=== PATIENT | female | born 1930 | race Caucasian/White ===

== ENCOUNTER 2017-10-25 15:12 | Outpatient (CLI) | payer MEDICARE, OTHER | END 2017-10-25 15:13 | disposition home or self-care (01) | LOC: SC 15:12 | PROVIDERS: ATTEND Nurse Practitioner Family | DX: G47.33 Obstructive sleep apnea (adult) (pediatric) (principal) | CPT/HCPCS: 99214; G0463; 99212 ==

== ENCOUNTER 2017-11-25 15:57 | Outpatient (CLI) | payer MEDICARE, OTHER ==
--- NOTE | 2017-11-25 16:40 | XRAY Report ---
EXAM: CHEST RADIOGRAPHY EXAM DATE: 11/25/2017 04:15 PM. CLINICAL HISTORY: Cough. History of interstitial lung disease. COMPARISON: None. TECHNIQUE: 2 views. FINDINGS: Lungs/Pleura: Mild scarring/atelectasis in the bases, otherwise clear lungs. No effusion or pneumotho rax. Mediastinum: Heart and mediastinal contours are unremarkable. Other: No compression fractures. IMPRESSION: Mild bibasilar atelectasis/scarring, otherwise unremarkable 2-view chest radiography. [facility] The call report notification system was initiated by Dr. Ian Pearce at 16:28 hrs on 11/25/17. The above findings were discussed with ANGELA Cuenca by Dr. Ian Pearce at 16:38 hrs on . Referring Provider Line: [phone] SITE ID: [id number]
== END 2017-11-25 15:58 | disposition home or self-care (01) ==
LOC: DI 15:57
PROVIDERS: ATTEND Physician Assistant
DX: R05 Cough (principal)
CPT/HCPCS: 71020

== ENCOUNTER 2018-09-10 21:40 | Outpatient (CLI) | payer MEDICARE, OTHER | END 2018-09-10 21:41 | disposition critical access hospital (66) | LOC: EMS 21:40 | PROVIDERS: ATTEND Surgery | DX: R19.7 Diarrhea, unspecified (principal); R11.2 Nausea with vomiting, unspecified | CPT/HCPCS: A0425; A0427 ==

== ENCOUNTER 2018-09-10 21:55 | Inpatient (IN) | payer MEDICARE, OTHER ==
[2018-09-10 23:25] LABS: BASOPHILS # (AUTO) 0.1 10^3/uL (0.0-0.1); BASOPHILS % (AUTO) 0.8 %; EOSINOPHILS # (AUTO) 0.2 10^3/uL (0.0-0.7); HGB - HEMOGLOBIN 11.7 g/dL (12.0-16.0); LYMPHOCYTES # (AUTO) 1.8 10^3/uL (1.5-3.5); LYMPHOCYTES % (AUTO) 21.4 %; MEAN CORPUSCULAR HEMOGLOBIN 32.1 pg (27.0-31.0); MEAN CORPUSCULAR HGB CONC 35.4 g/dL (32.0-36.0); MEAN CORPUSCULAR VOLUME 90.8 fL (81.0-99.0); MEAN PLATELET VOLUME 6.9 fL (7.9-10.8); MONOCYTES # (AUTO) 0.6 10^3/uL (0.0-1.0); MONOCYTES % (AUTO) 7.4 %; NEUTROPHILS # (AUTO) 5.7 10^3/uL (1.5-6.6); NEUTROPHILS % (AUTO) 68.4 %; PLT - PLATELET COUNT 302 10^3/uL (130-450); RED BLOOD COUNT 3.63 10^6/uL (4.20-5.40); RED CELL DISTRIBUTION WIDTH 13.7 % (12.0-15.0); WHITE BLOOD COUNT 8.3 x10^3/uL (4.8-10.8)
--- NOTE | 2018-09-10 23:40 | ED Physician Documentation ---
PD HPI NVD - Stated complaint Stated Complaint: N/V/D - Chief complaint Chief Complaint: General - History obtained from History obtained from: Patient - History of Present Illness Timing - onset: How many months ago (1) Timing - duration: Other (diarrhea x 1 month, n/v x 2-3 days) Timing - details: Gradual onset, Intermittant Pain level max: 0 Pain level now: 0 Associated symptoms: No: Fever, Abdominal pain Improved by: Other (no ameliorating factors) Worsened by: Eating Similar symptoms before: Has not had sx before Recently seen: Not recently seen - Additonal information Additional information: c/o 1 month of episodic diarrhea of increasing frequency. nausea and vomiting x 2-3 days, also increasing in frequency and duration. BIBA, given zofran IV en route with improvement in nausea. Review of Systems Constitutional: reports: Reviewed and negative Cardiac: reports: Reviewed and negative Respiratory: reports: Reviewed and negative GI: reports: Nausea, Vomiting, Diarrhea. denies: Abdominal Pain, Constipation : denies: Dysuria, Frequency Skin: reports: Reviewed and negative Musculoskeletal: reports: Reviewed and negative Neurologic: reports: Generalized weakness. denies: Focal weakness, Numbness, Confused, Altered mental status, Headache PD PAST MEDICAL HISTORY - Past Medical History Past Medical History: Yes Cardiovascular: Hypertension Neuro: Tremors Psych: Depression, Anxiety - Past Surgical History Past Surgical History: Yes General: Cholecystectomy, Appendectomy Ortho: Knee replacement HEENT: Tonsil/Adenoidectomy - Allergies Allergies/Adverse Reactions: Allergies Allergy/AdvReac Type Severity Reaction Status Date / Time codeine Allergy Nausea Verified 09/10/18 21:59 procaine [From Novocain] Allergy Anaphylaxis Verified 09/10/18 21:59 Sulfa (Sulfonamide Allergy Nausea Verified 09/10/18 21:59 Antibiotics) - Social History Does the pt smoke?: Yes Smoking Status: Former smoker Does the pt drink ETOH?: No Does the pt have substance abuse?: No - Immunizations Immunizations are current?: Yes - POLST Patient has POLST: No PD ED PE NORMAL - Vitals Vital signs reviewed: Yes - General General: Alert and oriented X 3, No acute distress, Well developed/nourished - HEENT HEENT: PERRL, EOMI, Other (tacky/pasty mucous membranes) - Neck Neck: Supple, no meningeal sign - Cardiac Cardiac: RRR, No murmur - Respiratory Respiratory: No respiratory distress, Clear bilaterally - Abdomen Abdomen: Soft, Non tender - Back Back: No CVA TTP - Derm Derm: Normal color, Warm and dry - Extremities Extremities: No edema - Neuro Neuro: Alert and oriented X 3 Results - Vitals Vitals: Vital Signs - 24 hr 09/10/18 21:59 Temperature 36.7 C Heart Rate 60 Respiratory 16 Rate Blood Pressure 175/56 H O2 Saturation 99 Oxygen O2 Source Room air - Labs Labs: Laboratory Tests 09/10/18 23:20 WBC 8.3 RBC 3.63 L Hgb 11.7 L Hct 33.0 L MCV 90.8 MCH 32.1 H MCHC 35.4 RDW 13.7 Plt Count 302 MPV 6.9 L Neut # (Auto) 5.7 Lymph # (Auto) 1.8 [place] # (Auto) 0.6 Eos # (Auto) 0.2 Baso # (Auto) 0.1 Absolute Nucleated RBC 0.00 Nucleated RBC % 0.0 PD MEDICAL DECISION MAKING - ED course Complexity details: reviewed results, re-evaluated patient, considered differential, d/w patient ED course: Improved with zofran IV en route, but N/V recurred during H+P, requiring redose of zofran. Blood tests reveal significant hyponatremia Departure - Departure Disposition: 66 [facility] DC/Xfer Clinical Impression: Hyponatremia Diarrhea Qualifiers: Diarrhea type: unspecified type Qualified Code(s): R19.7 - Diarrhea, unspecified Vomiting Qualifiers: Vomiting type: unspecified Vomiting Intractability: intractable Nausea presence: with nausea Qualified Code(s): R11.2 - Nausea with vomiting, unspecified Condition: Stable Discharge Date/Time: 09/11/18 01:27
[2018-09-10 23:41] LABS: ALBUMIN 3.8 g/dL (3.2-5.5); ALBUMIN/GLOBULIN RATIO 1.3 (1.0-2.2); BILIRUBIN,TOTAL 0.8 mg/dL (0.2-1.0); CALCIUM 9.9 mg/dL (8.5-10.3); TOTAL PROTEIN 6.7 g/dL (6.7-8.2)
[2018-09-10] MEDS ORDERED: SODIUM CHLORIDE 0.9% 500 ML IV STA (23:56)
[2018-09-10] MEDS ORDERED: SODIUM CHLORIDE 0.9% 1,000 ML IV STA (23:57)
[2018-09-11] MEDS ORDERED: ONDANSETRON 4 MG/2 ML VIAL IVP STA (00:11)
[2018-09-11 00:14] LABS: BILIRUBIN,URINE NEGATIVE (NEGATIVE); CLARITY,URINE CLEAR (CLEAR); GLUCOSE, URINE (UA) NEGATIVE (NEGATIVE); KETONES,URINE (UA) TRACE mg/dL (NEGATIVE); LEUKOCYTE ESTERASE, URINE SMALL (NEGATIVE); NITRITE,URINE POSITIVE (NEGATIVE); OCCULT BLOOD,URINE NEGATIVE (NEGATIVE); PH,URINE 5.5 PH (5.0-7.5); PROTEIN,URINE NEGATIVE (NEGATIVE); UROBILINOGEN,URINE 0.2 (NORMAL) E.U./dL (NORMAL)
[2018-09-11] MEDS ORDERED: ACETAMINOPHEN 325 MG TABLET PO PRN (00:15)
[2018-09-11] MEDS ORDERED: ONDANSETRON 4 MG/2 ML VIAL IVP PRN (00:15)
[2018-09-11] MEDS ORDERED: oxyCODONE 5 MG TABLET PO PRN ×2 (00:15)
[2018-09-11] MEDS ORDERED: PROCHLORPERAZINE 10 MG/2 ML VIAL IVP PRN (00:15)
[2018-09-11] MEDS ORDERED: SODIUM CHLORIDE FLUSH 0.9% 10 ML SYRINGE IVP PRN (00:15)
[2018-09-11 00:18] LABS: BACTERIA,URINE Rare /HPF (None Seen); RBC,URINE None Seen /HPF (0-5); SQUAMOUS EPITHELIAL CELL,UR FEW Squamous (<= Few)
--- NOTE | 2018-09-11 00:31 | HISTORY & PHYSICAL EXAMINATION ---
Chief Complaint - Chief Complaint Chief Complaint: Nausea and vomiting History of Present Illness - Admitted From Admitted From:: Emergency Department - History Obtained From Records Reviewed: Yes History obtained from: Patient and patients family Exam Limitations: None - History of Present Illness HPI Comment/Other: Patient is a very pleasant 87-year-old female with a past medical history significant for hypertension, essential tremor, restless leg syndrome, paroxysmal atrial fibrillation and obstructive sleep apnea on CPAP who presented to the emergency department with a chief complaint of nausea and vomiting. Acco rding to the patient she was in her normal state of health until about 1 month ago. She states that over the last 7 months she has been under a lot of stress due to her being hospitalized 10 times over those 7 months. She states that he has been having to go to a assisted off and on and over the last month he has taken a very bad turn in his health. She states that because of this she has become very stressed and believes this is related to her ongoing symptoms. She states about a month ago she began having diarrhea. She states it has been watery and yellowish in color. She denies any blood in her stools. She denies any fevers or chills. She denies any sick contacts. She denies having taken any new antibiotics. She states that she has been followed by her primary care physician regarding her diarrhea and has had C. difficile testing in the last 2 weeks which was negative. The patient states that on days that she is more stressed she seems to have more frequent episodes of diarrhea. On days when she is less stressed she has less diarrhea. She states that her [facility] physician put her on 2 antidepressants about 3 weeks ago and she was only able to tolerate them for about 1 week because they caused nausea and then she stopped them. She states that she has been trying to see her less and less as he is currently at [facility]. She states that every time she goes to see him she feels very stressed and then her symptoms get worse. She states that yesterday he was in really bad health and she was extremely stressed out after she saw him in that shape. She states that last night when she returned from seeing her she felt sick to her stomach and had episode of diarrhea and then began vomiting. She states when she woke up this morning she continued to have an upset stomach and had several episodes of vomiting this morning. She states that things seem to be improving in the afternoon but then she received a phone call from the assisted and was told that her is getting worse and that the family needs to consider hospice for her . She states that after she got this news she became very upset and again became sick to her stomach. She states that she had several episodes of vomiting and was very nauseated therefore she finally was brought into the emergency department by her daughters. She states that yesterday she ate half a baked potato but did not eat anything unusual. She denies any fevers or chills. She denies any abdominal pain. She denies any chest pain or shortness of breath. She denies any cough. She denies any urinary urgency frequency or dysuria. The patient denies any headaches, blurred vision, runny nose, sore throat, nasal congestion, difficulty swallowing, orthopnea, PND, increased lower extremity swelling, joint pain, muscle aches, back pain, neck stiffness, recent unintentional weight loss, night sweats, skin rash, skin changes, hair loss, polyuria, polydipsia, changes in her appetite or any focal neurologic deficits. On presentation to the emergency department the patient was afebrile and hypertensive but otherwise did not appear to be in any distress. The patient did appear to be dry on examination. The patient underwent routine lab work which revealed a sodium of 119 and a potassium of 3.1 with a chloride of 85. The patient's urinalysis also was positive with positive nitrite, positive leukocyte Estrace and 11-25 WBCs with bacteria. The patient was given IV fluid in the emergency department and admitted for severe hyponatremia and urinary tract infection. History - Past Medical History Cardiovascular: reports: Hypertension, Atrial fibrillation (Paroxysmal) Respiratory: reports: Sleep apnea, CPAP use Neuro: reports: Tremors Psych: reports: Depression, Anxiety MRSA Hx?: No Other Past Medical History: Essential tremor. Restless leg syndrome - Past Surgical History General: reports: Cholecystectomy, Appendectomy Ortho: reports: Knee replacement HEENT: reports: Tonsil/Adenoidectomy - Family & Social History Family History: Mother: , Cancer (Colon cancer), COPD/Emphysema, Father: , Alcoholism, Other family: Cancer Living arrangement: At home Living Situation: Alone Social History Notes: The patient lives in a [facility] in [place]. Up until just the last few months she was living there with her . When her got sick she and her moved in with her daughter who lives nearby and another [facility]. However now the is been placed at a assisted and therefore the patient moved back to her [facility] and is living alone. She is under a great deal of stress as her is very ill and will likely need to be going hospice soon. She is depressed and having a difficult time handling everything. They have been for 60 years and she has never lived alone before this last month. She and her have split their [facility] through their lifetime. They have been living [place] now. The patient was previously a smoker but only smoked for about 7 years in the 1960s and smoked 2 packs a day during that time. She states that she rarely drinks alcohol and denies any other drug use. - POLST Patient has POLST: No POLST Status: DNR Meds/Allgy - Allergies Allergies/Adverse Reactions: Allergies Allergy/AdvReac Type Severity Reaction Status Date / Time codeine Allergy Nausea Verified 09/10/18 21:59 procaine [From Novocain] Allergy Anaphylaxis Verified 09/10/18 21:59 Sulfa (Sulfonamide Allergy Nausea Verified 09/10/18 21:59 Antibiotics) Review of Systems - Other Findings Other Findings: A comprehensive review of systems was performed the pertinent positives and negatives are stated above in the HPI and the remainder of the review of systems is negative. Prior Level of Functionality: She is completely independent with her activities of daily living. She ambulates without any assistance device. Exam - Vital Signs Reviewed Vital Signs: Yes Vital Signs: Vital Signs x48h Temp Pulse Resp BP Pulse Ox 09/10/18 23:50 63 16 148/55 H 98 09/10/18 21:59 36.7 C 60 16 175/56 H 99 - Physical Exam General Appearance: positive: No acute distress, Alert, Other (Depressed) Eyes Bilateral: positive: Normal inspection, PERRL, EOMI, No lid inflammation, Conjunctivae nml, No scleral icterus ENT: positive: ENT inspection nml, Pharynx nml, Dry mucous membranes. negative: Purulent nasal drainage, Pharyngeal erythema, Oral lesions Neck: positive: Nml inspection, Thyroid nml, No JVD, Trachea midline. negative: Thyromegaly, Lymphadenopathy (R), Lymphadenopathy (L), Stiff neck, Carotid bruit, Tracheal deviation Respiratory: positive: Chest non-tender, No respiratory distress, Breath sounds nml. negative: Wheezes, Rales, Rhonchi Cardiovascular: positive: Regular rate & rhythm, No murmur, No gallop Peripheral Pulses: positive: 2+ Abdomen: positive: No organomegaly, Nml bowel sounds, Tenderness (Mild epigastric tenderness without peritoneal signs, soft abdomen). negative: Guarding, Rebound, Hepatomegaly Back: positive: Nml inspection. negative: CVA tenderness (R), CVA tenderness (L) Skin: positive: Color nml, No rash, Warm, Dry. negative: Cyanosis, Diaphoresis, Pallor, Skin rash Extremities: positive: Non-tender, Full ROM, Nml appearance, No pedal edema Neurologic/Psychiatric: positive: Oriented x3, CN's nml (2-12), Motor nml, Sensation nml, Mood/affect nml Conclusion/Plan - Problem List (1) Hyponatremia Conclusion/Plan: The patient presented with nausea and vomiting. The patient is also been having 1 month of diarrhea. The patient appears to be very dry on examination. The patient appears to have hypovolemic hyponatremia with a sodium of 119. Given that the patient's sodium is critically low we will treat her slowly and monitor her sodium every 6 hours. Will try not to correct the sodium too fast and we will have a goal of no more than 10 mmol/L sodium correction per day. Plan: IV fluids Antiemetics and antidiarrheal medications to treat symptoms Monitor sodium every 6 hours Correct sodium at no more than 10 mmol/L/day (2) Hypokalemia Conclusion/Plan: The patient presents with hypokalemia with a potassium of 3.1. Patient's hypokalemia appears likely to be secondary to chronic diarrhea and ongoing nausea and vomiting. Plan: Replace patient's potassium with IV fluids IV antiemetics Treat diarrhea (3) UTI (urinary tract infection) Conclusion/Plan: The patient presented with nausea and vomiting and had finding of hyponatremia and hypokalemia. The patient denied any dysuria but did state that she had an upset stomach. Patient's urine analysis appears to be positive for a urinary tract infection. Given the patient's symptoms we will treat her for UTI. Plan: IV ceftriaxone IV fluids Follow-up urine culture Qualifiers: Urinary tract infection type: acute cystitis Hematuria presence: without hematuria Qualified Code(s): N30.00 - Acute cystitis without hematuria (4) Diarrhea Conclusion/Plan: The patient appears to be having episodic, chronic diarrhea over the last month. It appears to be related to stress. It seems that every time the patient becomes stressed about her 's deteriorating health she develops worsening diarrhea. This appears likely to be irritable bowel syndrome. The patient did have a C. difficile test done a few weeks ago which was negative. The patient's chronic diarrhea has led to electrolyte disturbances as the patient is hypo natremic and hypokalemic on presentation. Plan: Check stool for ova parasites, stool culture and fecal leukocytes Start patient on Bentyl for irritable bowel syndrome Treat patient's underlying anxiety, stress and depression Consider Lomotil or Imodium if the diarrhea continues. Qualifiers: Diarrhea type: unspecified type Qualified Code(s): R19.7 - Diarrhea, unspecified (5) Hypertension Conclusion/Plan: The patient has a history of hypertension and blood pressure was elevated on presentation. The patient does take a number of antihypertensive medications at home but she does not have her home medication list with her today. The patient will get her daughter to bring in her home medication list and we will restart her on her normal antihypertensive medications. The patient's blood pressure will be monitored and we will titrate medications as needed. Qualifiers: Hypertension type: essential hypertension Qualified Code(s): I10 - E ssential (primary) hypertension (6) Depression Conclusion/Plan: The patient has been suffering with depression since her has been ill. She states that she is having a difficult time dealing with stress and has been very depressed especially over the last month as she has been living alone for the first time and her is nearing the end of his life. She was tried on antidepressants a few weeks ago but did not tolerate them well. She states that she has been on Valium in the past that seemed to help with her stress and depression issues in the past. The patient will be placed on Xanax while she is hospitalized twice a day and we will monitor to see if her symptoms respond. We will get a social work consult Qualifiers: Depression Type: unspecified Qualified Code(s): F32.9 - Major depressive disorder, single episode, unspecified (7) JOSE DANIEL on CPAP Conclusion/Plan: The patient has a history of obstructive sleep apnea and uses CPAP at home. The patient will be continued on her home CPAP machine while she is hospitalized. - Lab Results Lab results reviewed: Yes Fish Bones: 09/10/18 23:20 09/10/18 23:20 Other Lab Results: Laboratory Results WBC 8.3 x10^3/uL (4.8-10.8) 09/10/18 23:20 RBC 3.63 10^6/uL (4.20-5.40) L 09/10/18 23:20 Hgb 11.7 g/dL (12.0-16.0) L 09/10/18 23:20 Hct 33.0 % (37.0-47.0) L 09/10/18 23:20 MCV 90.8 fL (81.0-99.0) 09/10/18 23:20 MCH 32.1 pg (27.0-31.0) H 09/10/18 23:20 MCHC 35.4 g/dL (32.0-36.0) 09/10/18 23:20 RDW 13.7 % (12.0-15.0) 09/10/18 23:20 Plt Count 302 10^3/uL (130-450) 09/10/18 23:20 MPV 6.9 fL (7.9-10.8) L 09/10/18 23:20 Neut # (Auto) 5.7 10^3/uL (1.5-6.6) 09/10/18 23:20 Lymph # (Auto) 1.8 10^3/uL (1.5-3.5) 09/10/18 23:20 [place] # (Auto) 0.6 10^3/uL (0.0-1.0) 09/10/18 23:20 Eos # (Auto) 0.2 10^3/uL (0.0-0.7) 09/10/18 23:20 Baso # (Auto) 0.1 10^3/uL (0.0-0.1) 09/10/18 23:20 Absolute Nucleated RBC 0.00 x10^3/uL 09/10/18 23:20 Nucleated RBC % 0.0 /100WBC 09/10/18 23:20 Sodium 119 mmol/L (135-145) L* 09/10/18 23:20 Potassium 3.1 mmol/L (3.5-5.0) L 09/10/18 23:20 Chloride 85 mmol/L (101-111) L 09/10/18 23:20 Carbon Dioxide 23 mmol/L (21-32) 09/10/18 23:20 Anion Gap 11.0 (6-13) 09/10/18 23:20 BUN 20 mg/dL (6-20) 09/10/18 23:20 Creatinine 1.0 mg/dL (0.4-1.0) 09/10/18 23:20 Estimated GFR (MDRD) 52 (>89) L 09/10/18 23:20 Glucose 110 mg/dL (70-100) H 09/10/18 23:20 Calcium 9.9 mg/dL (8.5-10.3) 09/10/18 23:20 Total Bilirubin 0.8 mg/dL (0.2-1.0) 09/10/18 23:20 AST 15 IU/L (10-42) 09/10/18 23:20 ALT 15 IU/L (10-60) 09/10/18 23:20 Alkaline Phosphatase 44 IU/L (42-121) 09/10/18 23:20 Total Protein 6.7 g/dL (6.7-8.2) 09/10/18 23:20 Albumin 3.8 g/dL (3.2-5.5) 09/10/18 23:20 Globulin 2.9 g/dL (2.1-4.2) 09/10/18 23:20 Albumin/Globulin Ratio 1.3 (1.0-2.2) 09/10/18 23:20 Lipase 61 U/L (22-51) H 09/10/18 23:20 Urine Color YELLOW 09/11/18 00:10 Urine Clarity CLEAR (CLEAR) 09/11/18 00:10 Urine pH 5.5 PH (5.0-7.5) 09/11/18 00:10 Ur Specific [place] 1.010 (1.002-1.030) 09/11/18 00:10 Urine Protein NEGATIVE mg/dL (NEGATIVE) 09/11/18 00:10 Urine Glucose (UA) NEGATIVE mg/dL (NEGATIVE) 09/11/18 00:10 Urine Ketones TRACE mg/dL (NEGATIVE) 09/11/18 00:10 Urine Occult Blood NEGATIVE (NEGATIVE) 09/11/18 00:10 Urine Nitrite POSITIVE (NEGATIVE) H 09/11/18 00:10 Urine Bilirubin NEGATIVE (NEGATIVE) 09/11/18 00:10 Urine Urobilinogen 0.2 (NORMAL) E.U./dL (NORMAL) 09/11/18 00:10 Ur Leukocyte Esterase SMALL (NEGATIVE) H 09/11/18 00:10 Urine RBC None Seen /HPF (0-5) 09/11/18 00:10 Urine WBC 11-25 /HPF (0-5) H 09/11/18 00:10 Ur Squamous Epith Cells FEW Squamous (<= Few) 09/11/18 00:10 Urine Bacteria Rare /HPF (None Seen) 09/11/18 00:10 Ur Microscopic Review INDICATED 09/11/18 00:10 Urine Culture Comments INDICATED 09/11/18 00:10 Core Measures - Anticipated LOS I expect patient to be DC'd or transferred within 96 hours.: Yes - DVT/VTE - Prophylaxis VTE/DVT Prophylaxis med ordered at admit?: Yes
[2018-09-11] MEDS: NS W/20 MEQ KCL 1,000 ML IV SCH ×2 (01:50→13:25)
[2018-09-11] MEDS: cefTRIAXone 1 GM in SODIUM CHLORIDE 0.9% MINIBAG 100 ML IV SCH (01:55)
[2018-09-11] MEDS: SODIUM CHLORIDE FLUSH 0.9% 10 ML SYRINGE IVP SCH ×3 (02:01→17:10)
[2018-09-11] MEDS: ALPRAZolam 0.25 MG TABLET PO SCH ×3 (02:37→20:19)
--- NOTE | 2018-09-11 03:20 | Ultrasound Report ---
Reason: Nausea and abdominal tenderness, elevated lipase Procedure Date: 09/11/2018 Accession Number: [id number] / [id number] Procedure: US - Abdomen Complete CPT Code: FULL RESULT: EXAM: ABDOMEN ULTRASOUND EXAM DATE: 09/11/2018 02:27 AM. CLINICAL HISTORY: Nausea and abdominal tenderness, elevated lipase. COMPARISON: None. TECHNIQUE: Real-time scanning was performed with static images obtained. FINDINGS: Liver: The liver parenchyma is heterogeneous. cm. Main portal vein flow: Hepatopetal. Gallbladder: Resected Biliary System: Common bile duct measures 4 mm. No intrahepatic or extrahepatic ductal dilatation. Pancreas: Obscured secondary to bowel gas. Kidneys: Right: 8.5 cm longitudinally. Normal. No contour-deforming mass, stones, or hydronephrosis. Left: 9.11 cm longitudinally. Normal. No contour-deforming mass, stones, or hydronephrosis. Spleen: 8.1 x 2.5 x 8.0 cm. Normal in size and echotexture. Aorta and Inferior Vena Cava: Unremarkable. Other: None. IMPRESSION: 1. No findings to explain clinical symptoms. [facility]
[2018-09-11 06:56] LABS: CREATININE 0.9 mg/dL (0.4-1.0); MAGNESIUM 1.3 mg/dL (1.7-2.8); PHOSPHORUS 3.2 mg/dL (2.5-4.6)
[2018-09-11 07:08] LABS: BASOPHILS # (AUTO) 0.1 10^3/uL (0.0-0.1); BASOPHILS % (AUTO) 0.7 %; EOSINOPHILS # (AUTO) 0.2 10^3/uL (0.0-0.7); EOSINOPHILS % (AUTO) 2.3 %; LYMPHOCYTES # (AUTO) 2.3 10^3/uL (1.5-3.5); LYMPHOCYTES % (AUTO) 27.9 %; MEAN CORPUSCULAR HEMOGLOBIN 31.7 pg (27.0-31.0); MEAN CORPUSCULAR HGB CONC 34.7 g/dL (32.0-36.0); MEAN CORPUSCULAR VOLUME 91.2 fL (81.0-99.0); MEAN PLATELET VOLUME 7.6 fL (7.9-10.8); MONOCYTES # (AUTO) 0.8 10^3/uL (0.0-1.0); NEUTROPHILS # (AUTO) 4.9 10^3/uL (1.5-6.6); NEUTROPHILS % (AUTO) 59.1 %; PLT - PLATELET COUNT 273 10^3/uL (130-450); RED BLOOD COUNT 3.48 10^6/uL (4.20-5.40); RED CELL DISTRIBUTION WIDTH 13.6 % (12.0-15.0); WHITE BLOOD COUNT 8.3 x10^3/uL (4.8-10.8)
[2018-09-11] MEDS ORDERED: POTASSIUM CHLORIDE 20 MEQ TABLET PO SCH (08:10)
[2018-09-11] MEDS ORDERED: cloNIDine 0.1 MG TABLET PO PRN (08:15)
[2018-09-11] MEDS ORDERED: ENOXAPARIN 40 MG/0.4 ML SYRINGE SUBQ SCH (09:00)
[2018-09-11] MEDS ORDERED: FAMOTIDINE 20 MG TABLET PO SCH (09:00)
[2018-09-11] MEDS: POLYETHYLENE GLYCOL 3350 17 GM PACKET PO SCH (09:03)
[2018-09-11] MEDS: DICYCLOMINE 10 MG CAPSULE PO SCH ×4 (09:32→20:19)
[2018-09-11] MEDS: FAMOTIDINE 20 MG TABLET PO SCH (09:32)
[2018-09-11] MEDS: ENOXAPARIN 30 MG/0.3 ML SYRINGE SUBQ SCH (09:32)
[2018-09-11] MEDS ORDERED: MAGNESIUM SULFATE 2 GRAM 2 GM/50 ML BAG IV ONE (11:00)
[2018-09-11 11:23] LABS: CALCIUM 8.9 mg/dL (8.5-10.3)
[2018-09-11] MEDS: SACCHAROMYCES BOULARDII 250 MG CAPSULE PO SCH ×2 (11:36→17:10)
[2018-09-11] MEDS: MULTIVITAMIN W/MINERALS TABLET PO SCH (11:36)
--- NOTE | 2018-09-11 11:36 | PROVIDER PROGRESS NOTE ---
Subjective - Prog Note Date Prog Note Date: 09/11/18 - Subjective Pt reports feeling: Improved Subjective: pt report she feels much better than yesterday, no N/V, but still has some loose stool. she report she had test for C.diff, it was negative. No CP, SOB, or abdominal pain. Current Medications - Current Medications Current Medications: Active Medications Acetaminophen (Tylenol) 650 mg PO Q4HR PRN PRN Reason: Pain 1 to 4 Alprazolam (Xanax) 0.5 mg PO BID [facility] Last Admin: 09/11/18 09:32 Dose: 0.5 mg Clonidine HCl (Catapres) 0.1 mg PO BID PRN PRN Reason: Hypertensive Emergency Dicyclomine HCl (Bentyl) 10 mg PO QID [facility] Last Admin: 09/11/18 09:32 Dose: 10 mg Enoxaparin Sodium (Lovenox) 30 mg SUBQ DAILY [facility] Last Admin: 09/11/18 09:32 Dose: 30 mg Famotidine (Pepcid) 20 mg PO DAILY [facility] Last Admin: 09/11/18 09:32 Dose: 20 mg Potassium Chloride/Sodium Chloride (Normal Saline 0.9% W/20 Meq Kcl) 1,000 mls @ 100 mls/hr IV .Q10H [facility] Last Admin: 09/11/18 01:50 Dose: 100 mls/hr Ceftriaxone Sodium 1 gm/ (Sodium Chloride) 100 mls @ 200 mls/hr IV Q24H [facility] Last Infusion: 09/11/18 02:39 Dose: Infused Magnesium Sulfate (Magnesium Sulfate) 2 gm in 50 mls @ 50 mls/hr IV ONCE ONE Stop: 09/11/18 11:59 Last Admin: 09/11/18 11:36 Dose: 50 mls/hr Magnesium Oxide (Mag Ox) 400 mg PO DAILYWM [facility] Multivitamins/Minerals (Theragran M) 1 tab PO DAILYWM [facility] Last Admin: 09/11/18 11:36 Dose: 1 tab Ondansetron HCl (Zofran Inj) 4 mg IVP Q6HR PRN PRN Reason: Nausea / Vomiting Oxycodone HCl (Roxicodone) 5 mg PO Q4HR PRN PRN Reason: Pain 5 to 7 Oxycodone HCl (Roxicodone) 10 mg PO Q4HR PRN PRN Reason: Pain 8 to 10 Polyethylene Glycol (Miralax) 17 gm PO DAILY [facility] Last Admin: 09/11/18 09:03 Dose: Not Given Prochlorperazine Edisylate (Compazine Inj) 10 mg IVP Q6HR PRN PRN Reason: Nausea / Vomiting Saccharomyces Boulardii (Florastor) 250 mg PO BIDWM [facility] Last Admin: 09/11/18 11:36 Dose: 250 mg Sodium Chloride (Normal Saline Flush 0.9%) 10 ml IVP PRN PRN PRN Reason: NEEDED PER PROVIDER ORDERS Sodium Chloride (Normal Saline Flush 0.9%) 10 ml IVP 0100,0900,1700 [facility] Last Admin: 09/11/18 09:33 Dose: 10 ml Objective - Vital Signs/Intake & Output Reviewed Vital Signs: Yes Vital Signs: Vital Signs x48h Temp Pulse Resp BP Pulse Ox 09/11/18 08:00 36.6 C 58 L 18 146/48 H 96 Intake & Output: Intake & Output 09/08/18 09/09/18 09/10/18 09/11/18 23:59 23:59 23:59 23:59 Intake Total 835 Balance 835 - Objective General Appearance: positive: No acute distress, Alert. negative: Lethargic Eyes Bilateral: positive: Normal inspection, PERRL, No lid inflammation, Conjunctivae nml ENT: positive: ENT inspection nml, Pharynx nml, No signs of dehydration. negative: Purulent nasal drainage, Pharyngeal erythema, Oral lesions Neck: positive: Nml inspection, Thyroid nml, No JVD, Trachea midline. negative: Thyromegaly, Lymphadenopathy (R), Lymphadenopathy (L), Stiff neck, Swelling/bruising, Tracheal deviation Respiratory: positive: Chest non-tender, No respiratory distress, Breath sounds nml. negative: Wheezes, Rales, Rhonchi Cardiovascular: positive: Regular rate & rhythm, No murmur, No gallop. negativ e: Irregularly irregular, Extrasystoles, Tachycardia, Bradycardia, JVD present, Systolic murmur, Diastolic murmur Peripheral Pulses: 2+ Radial (R), 2+ Radial (L), 2+ Dorsalis pedis (R), 2+ Dorsalis pedis (L) Abdomen: positive: Non-tender, No organomegaly, Nml bowel sounds, No distention. negative: Tenderness, Guarding, Rebound Back: positive: Nml inspection. negative: CVA tenderness (R), CVA tenderness (L) Skin: positive: Color nml, No rash, Warm, Dry. negative: Cyanosis, Diaphoresis, Pallor Extremities: positive: Non-tender, Full ROM, Nml appearance. negative: Calf tenderness, Joint swelling, Rigoberto's sign/cords Neurologic/Psychiatric: positive: Oriented x3, Motor nml, Sensation nml, Mood/affect nml. negative: Weakness, Sensory loss, Facial droop, Slurred/abnml speech, Depressed mood/affect - Lab Results Fish Bones: 09/11/18 06:35 09/11/18 11:00 Other Labs: Lab Results x24hrs 09/11/18 09/11/18 09/11/18 Range/Units 11:00 09:34 06:35 WBC (4.8-10.8) x10^3/uL RBC (4.20-5.40) 10^6/uL Hgb (12.0-16.0) g/dL Hct (37.0-47.0) % MCV (81.0-99.0) fL MCH (27.0-31.0) pg MCHC (32.0-36.0) g/dL RDW (12.0-15.0) % Plt Count (130-450) 10^3/uL MPV (7.9-10.8) fL Neut # (Auto) (1.5-6.6) 10^3/uL Lymph # (Auto) (1.5-3.5) 10^3/uL Riley # (Auto) (0.0-1.0) 10^3/uL Eos # (Auto) (0.0-0.7) 10^3/uL Baso # (Auto) (0.0-0.1) 10^3/uL Absolute Nucleated RBC x10^3/uL Nucleated RBC % /100WBC Sodium 125 L (135-145) mmol/L Potassium 3.7 (3.5-5.0) mmol/L Chloride 94 L (101-111) mmol/L Carbon Dioxide 22 (21-32) mmol/L Anion Gap 9.0 (6-13) BUN 16 (6-20) mg/dL Creatinine 1.0 (0.4-1.0) mg/dL Estimated GFR (MDRD) 52 L (>89) Glucose 100 (70-100) mg/dL Lactic Acid 0.4 L (0.5-2.2) mmol/L Calcium 8.9 (8.5-10.3) mg/dL Phosphorus (2.5-4.6) mg/dL Magnesium (1.7-2.8) mg/dL Total Bilirubin (0.2-1.0) mg/dL AST (10-42) IU/L ALT (10-60) IU/L Alkaline Phosphatase (42-121) IU/L Total Protein (6.7-8.2) g/dL Albumin (3.2-5.5) g/dL Globulin (2.1-4.2) g/dL Albumin/Globulin Ratio (1.0-2.2) Lipase (22-51) U/L Urine Color Urine Clarity (CLEAR) Urine pH (5.0-7.5) PH Ur Specific Mcdowell (1.002-1.030) Urine Protein (NEGATIVE) mg/dL Urine Glucose (UA) (NEGATIVE) mg/dL Urine Ketones (NEGATIVE) mg/dL Urine Occult Blood (NEGATIVE) Urine Nitrite (NEGATIVE) Urine Bilirubin (NEGATIVE) Urine Urobilinogen (NORMAL) E.U./dL Ur Leukocyte Esterase (NEGATIVE) Urine RBC (0-5) /HPF Urine WBC (0-5) /HPF Ur Squamous Epith Cells (<= Few) Urine Bacteria (None Seen) /HPF Ur Microscopic Review Urine Culture Comments Stool Leukocytes, Qual POSITIVE (Negative) 09/11/18 09/11/18 09/11/18 Range/Units 06:35 06:35 00:10 WBC 8.3 (4.8-10.8) x10^3/uL RBC 3.48 L (4.20-5.40) 10^6/uL Hgb 11.0 L (12.0-16.0) g/dL Hct 31.7 L (37.0-47.0) % MCV 91.2 (81.0-99.0) fL MCH 31.7 H (27.0-31.0) pg MCHC 34.7 (32.0-36.0) g/dL RDW 13.6 (12.0-15.0) % Plt Count 273 (130-450) 10^3/uL MPV 7.6 L (7.9-10.8) fL Neut # (Auto) 4.9 (1.5-6.6) 10^3/uL Lymph # (Auto) 2.3 (1.5-3.5) 10^3/uL Riley # (Auto) 0.8 (0.0-1.0) 10^3/uL Eos # (Auto) 0.2 (0.0-0.7) 10^3/uL Baso # (Auto) 0.1 (0.0-0.1) 10^3/uL Absolute Nucleated RBC 0.00 x10^3/uL Nucleated RBC % 0.0 /100WBC Sodium 124 L (135-145) mmol/L Potassium 3.3 L (3.5-5.0) mmol/L Chloride 93 L (101-111) mmol/L Carbon Dioxide 22 (21-32) mmol/L Anion Gap 9.0 (6-13) BUN 17 (6-20) mg/dL Creatinine 0.9 (0.4-1.0) mg/dL Estimated GFR (MDRD) 59 L (>89) Glucose 95 (70-100) mg/dL Lactic Acid (0.5-2.2) mmol/L Calcium 9.0 (8.5-10.3) mg/dL Phosphorus 3.2 (2.5-4.6) mg/dL Magnesium 1.3 L (1.7-2.8) mg/dL Total Bilirubin (0.2-1.0) mg/dL AST (10-42) IU/L ALT (10-60) IU/L Alkaline Phosphatase (42-121) IU/L Total Protein (6.7-8.2) g/dL Albumin (3.2-5.5) g/dL Globulin (2.1-4.2) g/dL Albumin/Globulin Ratio (1.0-2.2) Lipase (22-51) U/L Urine Color YELLOW Urine Clarity CLEAR (CLEAR) Urine pH 5.5 (5.0-7.5) PH Ur Specific Mcdowell 1.010 (1.002-1.030) Urine Protein NEGATIVE (NEGATIVE) mg/dL Urine Glucose (UA) NEGATIVE (NEGATIVE) mg/dL Urine Ketones TRACE (NEGATIVE) mg/dL Urine Occult Blood NEGATIVE (NEGATIVE) Urine Nitrite POSITIVE H (NEGATIVE) Urine Bilirubin NEGATIVE (NEGATIVE) Urine Urobilinogen 0.2 (NORMAL) (NORMAL) E.U./dL Ur Leukocyte Esterase SMALL H (NEGATIVE) Urine RBC None Seen (0-5) /HPF Urine WBC 11-25 H (0-5) /HPF Ur Squamous Epith Cells FEW Squamous (<= Few) Urine Bacteria Rare (None Seen) /HPF Ur Microscopic Review INDICATED Urine Culture Comments INDICATED Stool Leukocytes, Qual (Negative) 09/10/18 09/10/18 Range/Units 23:20 23:20 WBC 8.3 (4.8-10.8) x10^3/uL RBC 3.63 L (4.20-5.40) 10^6/uL Hgb 11.7 L (12.0-16.0) g/dL Hct 33.0 L (37.0-47.0) % MCV 90.8 (81.0-99.0) fL MCH 32.1 H (27.0-31.0) pg MCHC 35.4 (32.0-36.0) g/dL RDW 13.7 (12.0-15.0) % Plt Count 302 (130-450) 10^3/uL MPV 6.9 L (7.9-10.8) fL Neut # (Auto) 5.7 (1.5-6.6) 10^3/uL Lymph # (Auto) 1.8 (1.5-3.5) 10^3/uL Riley # (Auto) 0.6 (0.0-1.0) 10^3/uL Eos # (Auto) 0.2 (0.0-0.7) 10^3/uL Baso # (Auto) 0.1 (0.0-0.1) 10^3/uL Absolute Nucleated RBC 0.00 x10^3/uL Nucleated RBC % 0.0 /100WBC Sodium 119 L* (135-145) mmol/L Potassium 3.1 L (3.5-5.0) mmol/L Chloride 85 L (101-111) mmol/L Carbon Dioxide 23 (21-32) mmol/L Anion Gap 11.0 (6-13) BUN 20 (6-20) mg/dL Creatinine 1.0 (0.4-1.0) mg/dL Estimated GFR (MDRD) 52 L (>89) Glucose 110 H (70-100) mg/dL Lactic Acid (0.5-2.2) mmol/L Calcium 9.9 (8.5-10.3) mg/dL Phosphorus (2.5-4.6) mg/dL Magnesium (1.7-2.8) mg/dL Total Bilirubin 0.8 (0.2-1.0) mg/dL AST 15 (10-42) IU/L ALT 15 (10-60) IU/L Alkaline Phosphatase 44 (42-121) IU/L Total Protein 6.7 (6.7-8.2) g/dL Albumin 3.8 (3.2-5.5) g/dL Globulin 2.9 (2.1-4.2) g/dL Albumin/Globulin Ratio 1.3 (1.0-2.2) Lipase 61 H (22-51) U/L Urine Color Urine Clarity (CLEAR) Urine pH (5.0-7.5) PH Ur Specific Mcdowell (1.002-1.030) Urine Protein (NEGATIVE) mg/dL Urine Glucose (UA) (NEGATIVE) mg/dL Urine Ketones (NEGATIVE) mg/dL Urine Occult Blood (NEGATIVE) Urine Nitrite (NEGATIVE) Urine Bilirubin (NEGATIVE) Urine Urobilinogen (NORMAL) E.U./dL Ur Leukocyte Esterase (NEGATIVE) Urine RBC (0-5) /HPF Urine WBC (0-5) /HPF Ur Squamous Epith Cells (<= Few) Urine Bacteria (None Seen) /HPF Ur Microscopic Review Urine Culture Comments Stool Leukocytes, Qual (Negative) ABX Reporting Has patient been on IV antibiotics over the past 48 hours?: Yes Assessment/Plan - Problem List (1) Hyponatremia Impression: Conclusion/Plan: 09/11 today Na is 125, improved from previous 119 continue IVF of NS, Correct sodium at no more than 10 mmol/L/day PRN Antiemetics and antidiarrheal medications to treat symptoms The patient presented with nausea and vomiting. The patient is also been having 1 month of diarrhea. The patient appears to be very dry on examination. The patient appears to have hypovolemic hyponatremia with a sodium of 119. Given that the patient's sodium is critically low we will treat her slowly and monitor her sodium every 6 hours. Will try not to correct the sodium too fast and we will have a goal of no more than 10 mmol/L sodium correction per day. Plan: IV fluids Antiemetics and antidiarrheal medications to treat symptoms Monitor sodium every 6 hours Correct sodium at no more than 10 mmol/L/day (2) Hypokalemia 09/11 resolved Conclusion/Plan: The patient presents with hypokalemia with a potassium of 3.1. Patient's hypokalemia appears likely to be secondary to chronic diarrhea and ongoing nausea and vomiting. Plan: Replace patient's potassium with IV fluids IV antiemetics Treat diarrhea (3) UTI (urinary tract infection) Conclusion/Plan: pt denies dysuria but positive for UTI continue antibiotics of Rocephin Follow-up urine culture The patient presented with nausea and vomiting and had finding of hyponatremia and hypokalemia. The patient denied any dysuria but did state that she had an upset stomach. Patient's urine analysis appears to be positive for a urinary tract infection. Given the patient's symptoms we will treat her for UTI. Plan: IV ceftriaxone IV fluids Follow-up urine culture (4) Diarrhea Conclusion/Plan: 09/11 pt report loose stool, c.diff negative before continue IVF of NS, and lab monitor continue patient on Bentyl for irritable bowel syndrome Treat patient's underlying anxiety, stress and depression The patient appears to be having episodic, chronic diarrhea over the last month. It appears to be related to stress. It seems that every time the patient becomes stressed about her 's deteriorating health she develops worsening diarrhea. This appears likely to be irritable bowel syndrome. The patient did have a C. difficile test done a few weeks ago which was negative. The patient's chronic diarrhea has led to electrolyte disturbances as the patient is hyponatremic and hypokalemic on presentation. Plan: Check stool for ova parasites, stool culture and fecal leukocytes Start patient on Bentyl for irritable bowel syndrome Treat patient's underlying anxiety, stress and depression Consider Lomotil or Imodium if the diarrhea continues. (5) Hypertension Conclusion/Plan: 09/11 stable, continue home meds vital monitor The patient has a history of hypertension and blood pressure was elevated on presentation. The patient does take a number of antihypertensive medications at home but she does not have her home medication list with her today. The patient will get her daughter to bring in her home medication list and we will restart her on her normal antihypertensive medications. The patient's blood pressure will be monitored and we will titrate medications as needed. (6) Depression Conclusion/Plan: The patient has been suffering with depression since her has been ill. She states that she is having a difficult time dealing with stress and has been very depressed especially over the last month as she has been living alone for the first time and her is nearing the end of his life. She was tried on antidepressants a few weeks ago but did not tolerate them well. She states that she has been on Valium in the past that seemed to help with her stress and depression issues in the past. The patient will be placed on Xanax while she is hospitalized twice a day and we will monitor to see if her symptoms respond. We will get a social work consult (7) JOSE DANIEL on CPAP Conclusion/Plan: The patient has a history of obstructive sleep apnea and uses CPAP at home. The patient will be continued on her home CPAP machine while she is hospitalized.
[2018-09-11] MEDS ORDERED: PSYLLIUM PACKET PO PRN (12:36)
[2018-09-11] MEDS: ZINC SULFATE 220 MG CAPSULE PO SCH (13:25)
[2018-09-11] MEDS: amLODIPine 5 MG TABLET PO SCH (14:47)
[2018-09-11] MEDS: LOSARTAN 50 MG TABLET PO SCH (14:47)
[2018-09-11] MEDS: CITALOPRAM 10 MG TABLET PO SCH (14:56)
[2018-09-11 17:09] LABS: CALCIUM 8.9 mg/dL (8.5-10.3); CREATININE 1.1 mg/dL (0.4-1.0)
[2018-09-11] MEDS: AZELASTINE HCL NAS SCH (20:20)
[2018-09-11] MEDS ORDERED: rOPINIRole 0.25 MG TABLET PO SCH (21:00)
[2018-09-11] MEDS ORDERED: ASPIRIN EC 81 MG TABLET PO SCH (21:00)
[2018-09-11 23:20] LABS: CALCIUM 8.5 mg/dL (8.5-10.3); CREATININE 1.1 mg/dL (0.4-1.0)
[2018-09-12] MEDS: NS W/20 MEQ KCL 1,000 ML IV SCH ×2 (00:05→11:24)
[2018-09-12] MEDS: SODIUM CHLORIDE FLUSH 0.9% 10 ML SYRINGE IVP SCH ×2 (00:53→10:04)
[2018-09-12] MEDS: cefTRIAXone 1 GM in SODIUM CHLORIDE 0.9% MINIBAG 100 ML IV SCH (01:04)
[2018-09-12 06:22] LABS: BASOPHILS # (AUTO) 0.1 10^3/uL (0.0-0.1); EOSINOPHILS # (AUTO) 0.3 10^3/uL (0.0-0.7); EOSINOPHILS % (AUTO) 4.8 %; HGB - HEMOGLOBIN 10.7 g/dL (12.0-16.0); LYMPHOCYTES # (AUTO) 2.4 10^3/uL (1.5-3.5); LYMPHOCYTES % (AUTO) 32.7 %; MEAN CORPUSCULAR HEMOGLOBIN 31.5 pg (27.0-31.0); MEAN CORPUSCULAR HGB CONC 33.8 g/dL (32.0-36.0); MEAN CORPUSCULAR VOLUME 93.2 fL (81.0-99.0); MEAN PLATELET VOLUME 7.7 fL (7.9-10.8); MONOCYTES # (AUTO) 0.8 10^3/uL (0.0-1.0); MONOCYTES % (AUTO) 10.8 %; NEUTROPHILS # (AUTO) 3.6 10^3/uL (1.5-6.6); NEUTROPHILS % (AUTO) 50.7 %; PLT - PLATELET COUNT 261 10^3/uL (130-450); RED BLOOD COUNT 3.41 10^6/uL (4.20-5.40); WHITE BLOOD COUNT 7.2 x10^3/uL (4.8-10.8)
[2018-09-12 06:35] LABS: ALBUMIN 3.3 g/dL (3.2-5.5); ALBUMIN/GLOBULIN RATIO 1.4 (1.0-2.2); BILIRUBIN,TOTAL 0.3 mg/dL (0.2-1.0); CALCIUM 8.5 mg/dL (8.5-10.3); MAGNESIUM 1.8 mg/dL (1.7-2.8); PHOSPHORUS 2.2 mg/dL (2.5-4.6); TOTAL PROTEIN 5.6 g/dL (6.7-8.2)
[2018-09-12] MEDS ORDERED: MAGNESIUM OXIDE 400 MG TABLET PO SCH (08:00)
[2018-09-12] MEDS: POLYETHYLENE GLYCOL 3350 17 GM PACKET PO SCH (08:17)
[2018-09-12] MEDS ORDERED: LORATADINE 10 MG TABLET PO SCH (09:00)
[2018-09-12] MEDS ORDERED: PROPRANOLOL ER 80 MG CAPSULE PO SCH (09:00)
[2018-09-12 09:16] VITALS: BP 133/42
[2018-09-12] MEDS: amLODIPine 5 MG TABLET PO SCH (09:58)
[2018-09-12] MEDS: ALPRAZolam 0.25 MG TABLET PO SCH (09:59)
[2018-09-12] MEDS: SACCHAROMYCES BOULARDII 250 MG CAPSULE PO SCH (09:59)
[2018-09-12] MEDS: CITALOPRAM 10 MG TABLET PO SCH (10:00)
[2018-09-12] MEDS: LOSARTAN 50 MG TABLET PO SCH (10:00)
[2018-09-12] MEDS: DICYCLOMINE 10 MG CAPSULE PO SCH (10:01)
[2018-09-12] MEDS: MULTIVITAMIN W/MINERALS TABLET PO SCH (10:01)
[2018-09-12] MEDS: FAMOTIDINE 20 MG TABLET PO SCH (10:01)
[2018-09-12] MEDS: ENOXAPARIN 30 MG/0.3 ML SYRINGE SUBQ SCH (10:01)
[2018-09-12] MEDS: AZELASTINE HCL NAS SCH (10:04)
[2018-09-12] MEDS: ZINC SULFATE 220 MG CAPSULE PO SCH (11:22)
--- NOTE | 2018-09-12 12:22 | Discharge Plan ---
Discharge Plan Disposition: Home, Self Care Condition: Poor Prescriptions: Nitrofurantoin Monohyd/M-Cryst [Macrobid 100 mg Capsule] 100 mg PO BID #14 capsule Saccharomyces Boulardii [Florastor] 250 mg PO DAILY #7 capsule Diet: Regular Activity Restrictions: Activity as Tolerated Shower Restrictions: No (fall precaution) Instruction Topics: Hyponatremia Dc, UTI, Nitrofurantoin tablets or capsules Additional Instructions or Follow Up instructions: you may follow up your PCP in one week and have CMP blood test to check electrolytes. Your home medication chlorthalidone is hold now for your hyponatremia. You were found to have UTI, antibiotics Macrobid is prescribed for you. Should your symptoms return or worsen, you may present ER or call 911 for help. No Smoking: If you smoke, Please STOP! Call for help. Follow-up with: MARY CARABALLO [Primary Care Provider] -
--- NOTE | 2018-09-12 12:31 | DISCHARGE SUMMARY ---
Discharge Summary Discharge Date: 09/12/18 Discharging Provider: SHAH Primary Care Provider: Dr. Keller Condition at Discharge: Poor Discharge Disposition: 01 Home, Self Care Discharge Facility Name: home - DIAGNOSES Admission Diagnoses: (1) Hyponatremia (2) Hypokalemia (3) UTI (urinary tract infection) (4) Diarrhea (5) Hypertension (6) Depression (7) JOSE DANIEL on CPAP (8) nausea and vomiting Discharge Diagnoses with Status of Each Condition: 1) Hyponatremia improved, hold pt's home meds Diuretics, advise pt recheck CMP on 09/17/18 (2) Hypokalemia resolved (3) UTI (urinary tract infection) continue Macrobid to finish the antibiotics course (4) Diarrhea resolved (5) Hypertension stable, follow up PCP (6) Depression stable (7) JOSE DANIEL on CPAP stable,continue CPAP, followup PCP (8) nausea and vomiting resolved - HPI History of Present Illness: refer from Dr. Saenz's HPI on 09/11/18 as the following: Patient is a very pleasant 87-year-old female with a past medical history significant for hypertension, essential tremor, restless leg syndrome, paroxysmal atrial fibrillation and obstructive sleep apnea on CPAP who presented to the emergency department with a chief complaint of nausea and vomiting. According to the patient she was in her normal state of health until about 1 month ago. She states that over the last 7 months she has been under a lot of stress due to her being hospitalized 10 times over those 7 months. She states that he has been having to go to a residential off and on and over the last month he has taken a very bad turn in his health. She states that because of this she has become very stressed and believes this is related to her ongoing symptoms. She states about a month ago she began having diarrhea. She states it has been watery and yellowish in color. She denies any blood in her stools. She denies any fevers or chills. She denies any sick contacts. She denies having taken any new antibiotics. She states that she has been followed by her primary care physician regarding her diarrhea and has had C. difficile testing in the last 2 weeks which was negative. The patient states that on days that she is more stressed she seems to have more frequent episodes of diarrhea. On days when she is less stressed she has less diarrhea. She states that her primary care physician put her on 2 antidepressants about 3 weeks ago and she was only able to tolerate them for about 1 week because they caused nausea and then she stopped them. She states that she has been trying to see her less and less as he is currently at [facility]. She states that every time she goes to see him she feels very stressed and then her symptoms get worse. She states that yesterday he was in really bad health and she was extremely stressed out after she saw him in that shape. She states that last night when she returned from seeing her she felt sick to her stomach and had episode of diarrhea and then began vomiting. She states when she woke up this morning she continued to have an upset stomach and had several episodes of vomiting this morning. She states that things seem to be improving in the afte rnoon but then she received a phone call from the residential and was told that her is getting worse and that the family needs to consider hospice for her . She states that after she got this news she became very upset and again became sick to her stomach. She states that she had several episodes of vomiting and was very nauseated therefore she finally was brought into the emergency department by her daughters. She states that yesterday she ate half a baked potato but did not eat anything unusual. She denies any fevers or chills. She denies any abdominal pain. She denies any chest pain or shortness of breath. She denies any cough. She denies any urinary urgency frequency or dysuria. The patient denies any headaches, blurred vision, runny nose, sore throat, nasal congestion, difficulty swallowing, orthopnea, PND, increased lower extremity swelling, joint pain, muscle aches, back pain, neck stiffness, recent unintentional weight loss, night sweats, skin rash, skin changes, hair loss, polyuria, polydipsia, changes in her appetite or any focal neurologic deficits. On presentation to the emergency department the patient was afebrile and hypertensive but otherwise did not appear to be in any distress. The patient did appear to be dry on examination. The patient underwent routine lab work which revealed a sodium of 119 and a potassium of 3.1 with a chloride of 85. The patient's urinalysis also was positive with positive nitrite, positive leukocyte Estrace and 11-25 WBCs with bacteria. The patient was given IV fluid in the emergency department and admitted for severe hyponatremia and urinary tract infection. - HOSPITAL COURSE Hospital Course: pt was admitted for N/V. after treatment, pt's N/V was resolved. pt also was found to have hyponatemia. after IVF of NS, pt's Na increased. Pt's home meds diuretics was hold. pt is advised to follow up PCP and recheck CMP on coming Monday. - ALLERGIES Allergies/Adverse Reactions: Allergies Allergy/AdvReac Type Severity Reaction Status Date / Time codeine Allergy Nausea Verified 09/10/18 21:59 procaine [From Novocain] Allergy Anaphylaxis Verified 09/10/18 21:59 Sulfa (Sulfonamide Allergy Nausea Verified 09/10/18 21:59 Antibiotics) - MEDICATIONS Home Medications: Ambulatory Orders Medication Instructions Recorded Confirmed Amlodipine Besylate [Norvasc] 2.5 mg PO DAILY 09/11/18 09/11/18 Aspirin [Aspirin EC] 81 mg PO QPM 09/11/18 09/11/18 Azelastine HCl 1 spr ALBER BID 09/11/18 09/11/18 Citalopram Hydrobromide 20 mg PO DAILY 09/11/18 09/11/18 [Citalopram HBr] Esomeprazole Magnesium [Nexium 20 mg PO QDAC 09/11/18 09/11/18 24Hr] Loratadine [Claritin] 10 mg PO DAILY 09/11/18 09/11/18 Propranolol ER [Inderal LA] 80 mg PO DAILY 09/11/18 09/11/18 Ropinirole HCl [Requip] 0.5 mg PO QPM 09/11/18 09/11/18 Valsartan [Diovan] 320 mg PO DAILY 09/11/18 09/11/18 Nitrofurantoin Monohyd/M-Cryst 100 mg PO BID #14 capsule 09/12/18 [Macrobid 100 mg Capsule] Saccharomyces Boulardii [Florastor] 250 mg PO DAILY #7 capsule 09/12/18 - PHYSICAL EXAM AT DISCHARGE General Appearance: positive: No acute distress, Alert. negative: Lethargic Eyes Bilateral: positive: Normal inspection, PERRL, No lid inflammation, Conjunctivae nml ENT: positive: ENT inspection nml, Pharynx nml, No signs of dehydration. negative: Purulent nasal drainage, Pharyngeal erythema, Oral lesions Neck: positive: Nml inspection, Thyroid nml, No JVD, Trachea midline. negative: Thyromegaly, Lymphadenopathy (R), Lymphadenopathy (L), Stiff neck, Swelling/bruising, Tracheal deviation Respiratory: positive: Chest non-tender, No respiratory distress, Breath sounds nml. negative: Wheezes, Rales, Rhonchi Cardiovascular: positive: Regular rate & rhythm, No murmur, No gallop. negative: Irregularly irregular, Extrasystoles, Tachycardia, Bradycardia, JVD present, Systolic murmur, Diastolic murmur Peripheral Pulses: positive: 2+ Abdomen: positive: Non-tender, No organomegaly, Nml bowel sounds, No distention. negative: Tenderness, Guarding, Rebound Back: positive: Nml inspection. negative: CVA tenderness (R), CVA tenderness (L) Skin: positive: Color nml, No rash, Warm, Dry. negative: Cyanosis, Diaphoresis, Pallor Extremities: positive: Non-tender, Full ROM, Nml appearance. negative: Calf tenderness, Joint swelling, Rigoberto's sign/cords Neurologic/Psychiatric: positive: Oriented x3, Motor nml, Sensation nml, Mood/affect nml. negative: Weakness, Sensory loss, Facial droop, Slurred/abnml speech, Depressed mood/affect - LABS Result Diagrams: 09/12/18 05:49 09/12/18 05:49 - FOLLOW UP Follow Up: you may follow up your PCP in one week and have CMP blood test to check electrolytes. Your home medication chlorthalidone is hold now for your hypon atremia. You were found to have UTI, antibiotics Macrobid is prescribed for you. Should your symptoms return or worsen, you may present ER or call 911 for help. - TIME SPENT Time Spent in Discharge (Minutes): 50
== END 2018-09-12 13:12 | disposition home or self-care (01) | DRG 641 ==
LOC: EDUNIT# → ED 21:55 → MS2 09-11 00:15
PROVIDERS: ADMIT Internal Medicine; ATTEND Nurse Practitioner Gerontology
DX: E87.1 Hypo-osmolality and hyponatremia (principal); R19.7 Diarrhea, unspecified; N30.00 Acute cystitis without hematuria; E87.6 Hypokalemia; K52.9 Noninfective gastroenteritis and colitis, unspecified; R11.2 Nausea with vomiting, unspecified; I10 Essential (primary) hypertension; F32.9 Major depressive disorder, single episode, unspecified; G47.33 Obstructive sleep apnea (adult) (pediatric); I48.0 Paroxysmal atrial fibrillation; G25.81 Restless legs syndrome; G25.0 Essential tremor; F41.9 Anxiety disorder, unspecified; Z66 Do not resuscitate; Z87.891 Personal history of nicotine dependence; Z63.79 Other stressful life events affecting family and household; Z79.899 Other long term (current) drug therapy
CPT/HCPCS: 36415; 76700; 80048; 80053; 81001; 81003; 83605; 83630; 83690; 83735; 84100; 85025; 87045; 87046; 87077; 87086; 87177; 87181; 87209; 90686; 99283

== ENCOUNTER 2018-09-16 21:52 | Emergency (ER) | payer MEDICARE, OTHER ==
[2018-09-16] MEDS ORDERED: SODIUM CHLORIDE 0.9% 1,000 ML IV ONE (21:58)
--- NOTE | 2018-09-16 22:05 | ED Physician Documentation ---
PD HPI NVD - Stated complaint Stated Complaint: N/V/D - Chief complaint Chief Complaint: Abd Pain - History obtained from History obtained from: Patient, EMS - History of Present Illness Timing - onset: Today (this evening) Timing - details: Abrupt onset Pain level max: 0 Pain level now: 0 Associated symptoms: No: Fever, Abdominal pain, Near syncope / syncope Improved by: Other (zofran) Worsened by: Other (no inciting or exacerbating factors) Recently seen: Emergency Dept, Admitted - Additonal information Additional information: Admitted to [facility] 09/11/18 for n/v/d and hyponatremia, discharged 09/12. She was then T+R from [facility] ED yesterday for n/v/d, rx zofran. Tonight, she had episode of nausea, vomiting, and diarrhea. She took a dose of the TL zofran and had resolution of n/v en route (BIBA). denies pain. "I feel fine" (per patient) on HPI. Patient says she had "xrays and an ultrasound" at ED without diagnostic results. Review of Systems Constitutional: denies: Fever, Chills, Sweats Cardiac: reports: Reviewed and negative Respiratory: reports: Reviewed and negative GI: reports: Nausea, Vomiting, Diarrhea. denies: Abdominal Pain, Abdominal Swelling PD PAST MEDICAL HISTORY - Past Medical History Cardiovascular: Hypertension Respiratory: Sleep apnea, CPAP use Neuro: Tremors HEENT: Chronic hearing loss Psych: Depression, Anxiety Derm: None - Past Surgical History Past Surgical History: Yes General: Cholecystectomy, Appendectomy Ortho: Knee replacement HEENT: Tonsil/Adenoidectomy - Present Medications Home Medications: Ambulatory Orders Medication Instructions Recorded Confirmed Amlodipine Besylate [Norvasc] 2.5 mg PO DAILY 09/11/18 09/11/18 Aspirin [Aspirin EC] 81 mg PO QPM 09/11/18 09/11/18 Azelastine HCl 1 spr ALBER BID 09/11/18 09/11/18 Citalopram Hydrobromide 20 mg PO DAILY 09/11/18 09/11/18 [Citalopram HBr] Esomeprazole Magnesium [Nexium 20 mg PO QDAC 09/11/18 09/11/18 24Hr] Loratadine [Claritin] 10 mg PO DAILY 09/11/18 09/11/18 Propranolol ER [Inderal LA] 80 mg PO DAILY 09/11/18 09/11/18 Ropinirole HCl [Requip] 0.5 mg PO QPM 09/11/18 09/11/18 Valsartan [Diovan] 320 mg PO DAILY 09/11/18 09/11/18 Nitrofurantoin Monohyd/M-Cryst 100 mg PO BID #14 capsule 09/12/18 [Macrobid 100 mg Capsule] Saccharomyces Boulardii [Florastor] 250 mg PO DAILY #7 capsule 09/12/18 Diphenoxylate/Atropine [Lomotil] 1 each PO QID PRN #10 tablet 09/16/18 Ondansetron Odt [Zofran Odt] 4 mg TL Q6H PRN #10 tablet 09/16/18 - Allergies Allergies/Adverse Reactions: Allergies Allergy/AdvReac Type Severity Reaction Status Date / Time codeine Allergy Nausea Verified 09/10/18 21:59 procaine [From Novocain] Allergy Anaphylaxis Verified 09/10/18 21:59 Sulfa (Sulfonamide Allergy Nausea Verified 09/10/18 21:59 Antibiotics) - Social History Does the pt smoke?: Yes Smoking Status: Current every day smoker Does the pt drink ETOH?: No Does the pt have substance abuse?: No - Immunizations Immunizations are current?: Yes - POLST Patient has POLST: No POLST Status: DNR PD ED PE NORMAL - Vitals Vital signs reviewed: Yes - General General: Alert and oriented X 3, No acute distress, Well developed/nourished - HEENT HEENT: Moist mucous membranes - Cardiac Cardiac: RRR, No murmur - Respiratory Respiratory: No respiratory distress, Clear bilaterally - Abdomen Abdomen: Normal bowel sounds, Soft, Non tender, Non distended - Derm Derm: Normal color, Warm and dry - Extremities Extremities: No edema - Neuro Neuro: Alert and oriented X 3, caddymaster 2-12 intact Eye Opening: Spontaneous Motor: Obeys Commands Verbal: Oriented GCS Score: 15 Results - Vitals Vitals: Vital Signs - 24 hr 09/16/18 09/16/18 21:52 23:19 Temperature 37.0 C 36.5 C Heart Rate 65 72 Respiratory 18 18 Rate Blood Pressure 154/59 H 146/53 H O2 Saturation 97 97 Oxygen O2 Source Room air - Labs Labs: Laboratory Tests 09/16/18 09/16/18 09/16/18 22:12 22:12 22:15 WBC 8.7 RBC 3.53 L Hgb 11.0 L Hct 33.1 L MCV 93.6 MCH 31.1 H MCHC 33.2 RDW 14.1 Plt Count 265 MPV 7.1 L Neut # (Auto) 4.9 Lymph # (Auto) 2.4 [place] # (Auto) 1.0 Eos # (Auto) 0.4 Baso # (Auto) 0.1 Absolute Nucleated RBC 0.00 Nucleated RBC % 0.0 Sodium 128 L Potassium 3.4 L Chloride 95 L Carbon Dioxide 24 Anion Gap 9.0 BUN 15 Creatinine 1.1 H Estimated GFR (MDRD) 47 L Glucose 130 H Calcium 8.5 Total Bilirubin 0.6 AST 26 ALT 25 Alkaline Phosphatase 42 Total Protein 6.5 L Albumin 3.8 Globulin 2.7 Albumin/Globulin Ratio 1.4 Lipase 68 H Urine Color YELLOW Urine Clarity CLEAR Urine pH 6.5 Ur Specific [place] 1.015 Urine Protein TRACE Urine Glucose (UA) NEGATIVE Urine Ketones NEGATIVE Urine Occult Blood NEGATIVE Urine Nitrite NEGATIVE Urine Bilirubin NEGATIVE Urine Urobilinogen 0.2 (NORMAL) Ur Leukocyte Esterase NEGATIVE Ur Microscopic Review NOT INDICATED Urine Culture Comments NOT INDICATED PD MEDICAL DECISION MAKING - ED course Complexity details: reviewed old records, reviewed results, re-evaluated patient, considered differential, d/w patient Departure - Departure Disposition: 01 Home, Self Care Clinical Impression: Hyponatremia, Vomiting, Diarrhea Condition: Good Instructions: ED Hyponatremia, ED Vomiting Diarrhea Nonspecific Ad Follow-Up: MARY CARABALLO [Primary Care Provider] - Prescriptions: Diphenoxylate/Atropine [Lomotil] 1 each PO QID PRN #10 tablet PRN Reason: Diarrhea Ondansetron Odt [Zofran Odt] 4 mg TL Q6H PRN #10 tablet PRN Reason: Nausea / Vomiting Discharge Date/Time: 09/16/18 23:19
[2018-09-16 22:18] LABS: BASOPHILS # (AUTO) 0.1 10^3/uL (0.0-0.1); BASOPHILS % (AUTO) 0.6 %; EOSINOPHILS # (AUTO) 0.4 10^3/uL (0.0-0.7); EOSINOPHILS % (AUTO) 4.5 %; LYMPHOCYTES # (AUTO) 2.4 10^3/uL (1.5-3.5); LYMPHOCYTES % (AUTO) 27.7 %; MEAN CORPUSCULAR HEMOGLOBIN 31.1 pg (27.0-31.0); MEAN CORPUSCULAR HGB CONC 33.2 g/dL (32.0-36.0); MEAN CORPUSCULAR VOLUME 93.6 fL (81.0-99.0); MEAN PLATELET VOLUME 7.1 fL (7.9-10.8); MONOCYTES % (AUTO) 11.3 %; NEUTROPHILS # (AUTO) 4.9 10^3/uL (1.5-6.6); NEUTROPHILS % (AUTO) 55.9 %; PLT - PLATELET COUNT 265 10^3/uL (130-450); RED BLOOD COUNT 3.53 10^6/uL (4.20-5.40); RED CELL DISTRIBUTION WIDTH 14.1 % (12.0-15.0); WHITE BLOOD COUNT 8.7 x10^3/uL (4.8-10.8)
[2018-09-16 22:26] LABS: BILIRUBIN,URINE NEGATIVE (NEGATIVE); GLUCOSE, URINE (UA) NEGATIVE (NEGATIVE); KETONES,URINE (UA) NEGATIVE (NEGATIVE); LEUKOCYTE ESTERASE, URINE NEGATIVE (NEGATIVE); NITRITE,URINE NEGATIVE (NEGATIVE); OCCULT BLOOD,URINE NEGATIVE (NEGATIVE); PH,URINE 6.5 PH (5.0-7.5); PROTEIN,URINE TRACE mg/dL (NEGATIVE); UROBILINOGEN,URINE 0.2 (NORMAL) E.U./dL (NORMAL)
[2018-09-16 22:28] LABS: CLARITY,URINE CLEAR (CLEAR)
[2018-09-16 22:31] LABS: ALBUMIN 3.8 g/dL (3.2-5.5); ALBUMIN/GLOBULIN RATIO 1.4 (1.0-2.2); BILIRUBIN,TOTAL 0.6 mg/dL (0.2-1.0); CALCIUM 8.5 mg/dL (8.5-10.3); CREATININE 1.1 mg/dL (0.4-1.0); TOTAL PROTEIN 6.5 g/dL (6.7-8.2)
[2018-09-16 23:20] VITALS: BP 146/53
== END 2018-09-16 23:19 | disposition home or self-care (01) ==
LOC: EDUNIT# → ED 21:52
DX: E87.1 Hypo-osmolality and hyponatremia (principal); R11.2 Nausea with vomiting, unspecified; R19.7 Diarrhea, unspecified; I10 Essential (primary) hypertension; F17.200 Nicotine dependence, unspecified, uncomplicated; Z79.82 Long term (current) use of aspirin
CPT/HCPCS: 36415; 80053; 81001; 81003; 83690; 85025; 87086; 96360; 99283

== ENCOUNTER 2018-09-16 21:53 | Outpatient (CLI) | payer MEDICARE, OTHER | END 2018-09-16 21:54 | disposition critical access hospital (66) | LOC: EMS 21:53 | PROVIDERS: ATTEND Surgery | DX: R11.2 Nausea with vomiting, unspecified (principal); R19.7 Diarrhea, unspecified | CPT/HCPCS: A0425; A0429 ==

== ENCOUNTER 2018-09-19 17:37 | Outpatient (CLI) | payer MEDICARE, OTHER ==
--- NOTE | 2018-09-20 07:55 | XRAY Report ---
Reason: RIGHT SHOULDER IMPINGMENT Procedure Date: 09/19/2018 Accession Number: [id number] / [id number] Procedure: XR - Shoulder 3 View RT CPT Code: FULL RESULT: EXAM: RIGHT SHOULDER RADIOGRAPHY EXAM DATE: 09/19/2018 06:22 PM. CLINICAL HISTORY: RIGHT SHOULDER IMPINGEMENT. COMPARISON: None. TECHNIQUE: 3 views. FINDINGS: Bones: Normal mineralization. No focal bony lesions are seen. No evidence of fracture. Joints: No evidence of dislocation. There is moderate acromioclavicular joint degenerative disease with periarticular hypertrophy, joint space narrowing, and chondrocalcinosis. There is moderate to severe glenohumeral degenerative disease with joint space narrowing, periarticular sclerosis, and bony remodeling of the humeral head. Degenerative changes are most pronounced inferiorly. Soft tissues: The visualized hemithorax is unremarkable. No soft tissue swelling. IMPRESSION: 1. No evidence of fracture or dislocation. 2. There are underlying acromioclavicular and glenohumeral advanced degenerative changes. RADIA
== END 2018-09-19 17:38 | disposition home or self-care (01) ==
LOC: DI 17:37
PROVIDERS: ATTEND Specialist
DX: M25.811 Other specified joint disorders, right shoulder (principal); M19.011 Primary osteoarthritis, right shoulder

== ENCOUNTER 2018-12-18 21:15 | Outpatient (CLI) | payer MEDICARE, OTHER | END 2018-12-18 21:16 | disposition critical access hospital (66) | LOC: EMS 21:15 | PROVIDERS: ATTEND Surgery | DX: M54.2 Cervicalgia (principal) | CPT/HCPCS: A0425; A0429 ==

== ENCOUNTER 2018-12-18 21:28 | Emergency (ER) | payer MEDICARE, OTHER ==
--- NOTE | 2018-12-18 22:25 | ED Physician Documentation ---
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 Denies trauma. Pain has gradually worsened, took tylenol earlier today without adequate relief. She says she was told she should not take Motrin by one of her doctors in the past (cannot recall why). Cannot take codeine (caused shortness of breath). Review of Systems Constitutional: denies: Fever Cardiac: reports: Reviewed and negative Respiratory: reports: Reviewed and negative : denies: Unable to Void, Incontinent Skin: denies: Rash Musculoskeletal: reports: Neck pain. denies: Back pain Neurologic: denies: Focal weakness, Numbness, Headache PD PAST MEDICAL HISTORY - Past Medical History Cardiovascular: Hypertension Respiratory: Sleep apnea, CPAP use Neuro: Tremors HEENT: Chronic hearing loss Psych: Depression, Anxiety Derm: None - Past Surgical History Past Surgical History: Yes General: Cholecystectomy, Appendectomy Ortho: Knee replacement HEENT: Tonsil/Adenoidectomy - Present Medications Home Medications: Ambulatory Orders Medication Instructions Recorded Confirmed Amlodipine Besylate [Norvasc] 2.5 mg PO DAILY 09/11/18 09/11/18 Aspirin [Aspirin EC] 81 mg PO QPM 09/11/18 09/11/18 Azelastine HCl 1 spr ALBER BID 09/11/18 09/11/18 Citalopram Hydrobromide 20 mg PO DAILY 09/11/18 09/11/18 [Citalopram HBr] Esomeprazole Magnesium [Nexium 20 mg PO QDAC 09/11/18 09/11/18 24Hr] Loratadine [Claritin] 10 mg PO DAILY 09/11/18 09/11/18 Propranolol ER [Inderal LA] 80 mg PO DAILY 09/11/18 09/11/18 Ropinirole HCl [Requip] 0.5 mg PO QPM 09/11/18 09/11/18 Valsartan [Diovan] 320 mg PO DAILY 09/11/18 09/11/18 Nitrofurantoin Monohyd/M-Cryst 100 mg PO BID #14 capsule 09/12/18 [Macrobid 100 mg Capsule] Saccharomyces Boulardii [Florastor] 250 mg PO DAILY #7 capsule 09/12/18 Diphenoxylate/Atropine [Lomotil] 1 each PO QID PRN #10 tablet 09/16/18 Ondansetron Odt [Zofran Odt] 4 mg TL Q6H PRN #10 tablet 09/16/18 Cyclobenzaprine [Flexeril] 10 mg PO TID PRN #20 tablet 12/19/18 Tramadol HCl 50 - 100 mg PO Q6HR PRN #20 tablet 12/19/18 - Allergies Allergies/Adverse Reactions: Allergies Allergy/AdvReac Type Severity Reaction Status Date / Time codeine Allergy Nausea Verified 09/10/18 21:59 lisinopril Allergy Respiratory Verified 12/18/18 21:34 procaine [From Novocain] Allergy Anaphylaxis Verified 09/10/18 21:59 Sulfa (Sulfonamide Allergy Nausea Verified 09/10/18 21:59 Antibiotics) - Social History Does the pt smoke?: Yes Smoking Status: Current every day smoker Does the pt drink ETOH?: No Does the pt have substance abuse?: No - Immunizations Immunizations are current?: Yes - POLST Patient has POLST: No POLST Status: DNR PD ED PE NORMAL - Vitals Vital signs reviewed: Yes - General General: Alert and oriented X 3, No acute distress (NAD at rest. Appears to have painful discomfort with movement of neck (rotation to either side, particularly to the right)), Well developed/nourished - HEENT HEENT: PERRL, EOMI, Moist mucous membranes - Neck Neck: Supple, no meningeal sign, No bony TTP, No adenopathy, Thyroid normal - Cardiac Cardiac: RRR, No murmur Results - Vitals Vitals: Vital Signs - 24 hr 12/18/18 12/19/18 21:30 01:24 Temperature 36.7 C Heart Rate 61 67 Respiratory 18 16 Rate Blood Pressure 154/59 H 144/71 H O2 Saturation 97 98 Oxygen O2 Source Room air PD MEDICAL DECISION MAKING - ED course Complexity details: reviewed results, re-evaluated patient, considered differential, d/w patient Departure - Departure Disposition: 01 Home, Self Care Clinical Impression: Neck pain Condition: Good Instructions: ED Neck Pain No Trauma Follow-Up: MARY CARABALLO [Primary Care Provider] - (3-5 days if symptoms have not resolved) Prescriptions: Tramadol HCl 50 - 100 mg PO Q6HR PRN #20 tablet PRN Reason: Pain Cyclobenzaprine [Flexeril] 10 mg PO TID PRN #20 tablet PRN Reason: Spasms Discharge Date/Time: 12/19/18 01:24
[2018-12-18] MEDS ORDERED: CYCLOBENZAPRINE 10 MG TABLET PO STA (22:46)
[2018-12-18] MEDS ORDERED: traMADol 50 MG TABLET PO STA (22:46)
[2018-12-19 01:24] VITALS: BP 144/71
== END 2018-12-19 01:24 | disposition home or self-care (01) ==
LOC: EDUNIT# → ED 21:28
DX: M54.2 Cervicalgia (principal); I10 Essential (primary) hypertension; F17.200 Nicotine dependence, unspecified, uncomplicated; Z96.659 Presence of unspecified artificial knee joint; Z79.82 Long term (current) use of aspirin
CPT/HCPCS: 99283; A9270

== ENCOUNTER 2019-01-16 16:10 | Outpatient (CLI) | payer MEDICARE, OTHER | END 2019-01-16 16:11 | disposition home or self-care (01) | LOC: SC 16:10 | PROVIDERS: ATTEND Nurse Practitioner Family | DX: G47.33 Obstructive sleep apnea (adult) (pediatric) (principal) | CPT/HCPCS: 99214; G0463; 99212 ==

== ENCOUNTER 2019-03-26 13:16 | Outpatient (CLI) | payer MEDICARE, OTHER | END 2019-03-26 13:17 | disposition home or self-care (01) | LOC: SC 13:16 | PROVIDERS: ATTEND Nurse Practitioner Family | DX: G47.33 Obstructive sleep apnea (adult) (pediatric) (principal) | CPT/HCPCS: 99214; G0463; 99212 ==

== ENCOUNTER 2019-06-05 13:29 | Outpatient (CLI) | payer MEDICARE, OTHER | END 2019-06-05 13:30 | disposition home or self-care (01) | LOC: SC 13:29 | PROVIDERS: ATTEND Nurse Practitioner Family | DX: G47.33 Obstructive sleep apnea (adult) (pediatric) (principal) | CPT/HCPCS: 99214; G0463; 99212 ==

== ENCOUNTER 2019-07-11 03:36 | Outpatient (CLI) | payer MEDICARE, OTHER | END 2019-07-11 03:37 | disposition critical access hospital (66) | LOC: EMS 03:36 | PROVIDERS: ATTEND Surgery | DX: R50.9 Fever, unspecified (principal); R31.9 Hematuria, unspecified; R11.2 Nausea with vomiting, unspecified; R53.1 Weakness | CPT/HCPCS: A0425; A0429 ==

== ENCOUNTER 2019-07-11 03:51 | Emergency (ER) | payer MEDICARE, OTHER ==
[2019-07-11] MEDS ORDERED: cefTRIAXone 1 GM in SODIUM CHLORIDE 0.9% MINIBAG 100 ML IV STA (03:59)
[2019-07-11] MEDS ORDERED: ONDANSETRON 4 MG/2 ML VIAL IVP STA (04:01)
[2019-07-11] MEDS ORDERED: SODIUM CHLORIDE 0.9% 500 ML IV ONE (04:02)
--- NOTE | 2019-07-11 04:05 | ED Physician Documentation ---
History of Present Illness - Stated complaint Stated Complaint: FEVER,CHILLS, BLOOD IN URINE - Chief complaint Chief Complaint: Fever - Additonal information Additional information: This is an 88-year-old female with a history of atrial fibrillation not on anticoagulation, recurrent UTIs, who presents with chills, vomiting, fever, and concern for UTI. Patient lives at [facility], she began developing chills yesterday night, followed by some generalized malaise and several episodes of nonbloody, nonbilious vomiting. She had a urine dipstick which showed positive leukocytes, negative nitrites. She also had a fever to 103.7F measured this evening at [facility]. She was given Tylenol last around 11PM. She denies abdominal pain, states that her stomach feels slightly upset/nauseated. She denies any chest pain, no cough over her baseline mild intermittent cough. No confusion or neck pain. Review of Systems Constitutional: reports: Fever, Chills Nose: denies: Congestion Throat: denies: Oral lesions / sores Cardiac: denies: Chest pain / pressure Respiratory: denies: Dyspnea GI: reports: Nausea. denies: Abdominal Pain : denies: Dysuria Skin: denies: Lesions Musculoskeletal: denies: Neck pain Neurologic: denies: Confused Immunocompromised: denies: Immunocompromised PD PAST MEDICAL HISTORY - Past Medical History Past Medical History: Yes Cardiovascular: Hypertension Respiratory: Sleep apnea, CPAP use Neuro: Tremors HEENT: Chronic hearing loss Psych: Depression, Anxiety Derm: None - Past Surgical History Past Surgical History: Yes General: Cholecystectomy, Appendectomy Ortho: Knee replacement HEENT: Tonsil/Adenoidectomy - Present Medications Home Medications: Ambulatory Orders Medication Instructions Recorded Confirmed Aspirin [Aspirin EC] 81 mg PO QPM 09/11/18 09/11/18 Citalopram Hydrobromide 20 mg PO DAILY 09/11/18 09/11/18 [Citalopram HBr] Loratadine [Claritin] 10 mg PO DAILY 09/11/18 09/11/18 Propranolol ER [Inderal LA] 80 mg PO DAILY 09/11/18 09/11/18 Ropinirole HCl [Requip] 0.5 mg PO QPM 09/11/18 09/11/18 Valsartan [Diovan] 320 mg PO DAILY 09/11/18 09/11/18 Cyclobenzaprine [Flexeril] 10 mg PO TID PRN #20 tablet 12/19/18 ALPRAZolam [Alprazolam] 0.25 mg PO BID 07/11/19 07/11/19 Calcium Carbonate [Tums (Calcium 1,000 mg PO TID 07/11/19 07/11/19 Carbonate 500mg)] Cefdinir 300 mg PO BID 7 Days #14 capsule 07/11/19 Chlorthalidone 37.5 mg PO DAILY 07/11/19 07/11/19 raNITIdine [Zantac] 150 mg PO BID 07/11/19 07/11/19 - Allergies Allergies/Adverse Reactions: Allergies Allergy/AdvReac Type Severity Reaction Status Date / Time codeine Allergy Nausea Verified 09/10/18 21:59 lidocaine Allergy Unknown Verified 07/11/19 04:22 lisinopril Allergy Respiratory Verified 12/18/18 21:34 procaine [From Novocain] Allergy Anaphylaxis Verified 09/10/18 21:59 Sulfa (Sulfonamide Allergy Nausea Verified 09/10/18 21:59 Antibiotics) - Social History Does the pt smoke?: No Smoking Status: Never smoker Does the pt drink ETOH?: No Does the pt have substance abuse?: No - Immunizations Immunizations are current?: Yes - POLST Patient has POLST: No POLST Status: DNR PD ED PE NORMAL - Vitals Vital signs reviewed: Yes - General General: Alert and oriented X 3 - HEENT HEENT: Atraumatic, PERRL - Neck Neck: Supple, no meningeal sign - Cardiac Cardiac: RRR - Respiratory Respiratory: Clear bilaterally - Abdomen Abdomen: Soft, Non tender, Non distended - Back Back: No CVA TTP - Derm Derm: Warm and dry, No rash - Extremities Extremities: No deformity - Neuro Neuro: Alert and oriented X 3, layer out 2-12 intact, No motor deficit, No sensory deficit, Normal speech - Psych Psych: Normal mood, Normal affect Results - Vitals Vitals: Vital Signs - 24 hr 07/11/19 07/11/19 07/11/19 03:53 03:57 04:03 Temperature 38.1 C H Heart Rate 83 75 74 Respiratory 16 18 Rate Blood Pressure 174/74 H 178/74 H O2 Saturation 93 95 07/11/19 07/11/19 07/11/19 04:33 05:33 06:00 Temperature 37.7 C H Heart Rate 70 73 70 Respiratory 20 16 23 Rate Blood Pressure 154/100 H 173/64 H 138/50 H O2 Saturation 94 97 94 07/11/19 07/11/19 06:30 07:30 Temperature 36.7 C Heart Rate 73 72 Respiratory 19 20 Rate Blood Pressure 141/54 H 145/46 H O2 Saturation 95 94 Oxygen O2 Source Room air - Labs Labs: Laboratory Tests 07/11/19 07/11/19 07/11/19 04:15 04:15 04:15 WBC 8.0 RBC 3.40 L Hgb 10.4 L Hct 31.2 L MCV 91.8 MCH 30.6 MCHC 33.3 RDW 13.7 Plt Count 264 MPV 8.9 Neut # (Auto) 5.7 Lymph # (Auto) 1.6 [place] # (Auto) 0.4 Eos # (Auto) 0.2 Baso # (Auto) 0.1 Absolute Nucleated RBC 0.00 Nucleated RBC % 0.0 PT 12.7 H INR 1.1 Sodium 128 L Potassium 4.3 Chloride 91 L Carbon Dioxide 23 Anion Gap 14.0 H BUN 31 H Creatinine 1.2 H Estimated GFR (MDRD) 42 L Glucose 134 H Lactic Acid Calcium 10.1 Total Bilirubin 0.7 AST 20 ALT 16 Alkaline Phosphatase 26 L Total Protein 7.0 Albumin 3.9 Globulin 3.1 Albumin/Globulin Ratio 1.3 Lipase 62 H Urine Color Urine Clarity Urine pH Ur Specific [place] Urine Protein Urine Glucose (UA) Urine Ketones Urine Occult Blood Urine Nitrite Urine Bilirubin Urine Urobilinogen Ur Leukocyte Esterase Urine RBC Urine WBC Ur Squamous Epith Cells Urine Bacteria Urine Culture Comments 07/11/19 07/11/19 04:15 05:30 WBC RBC Hgb Hct MCV MCH MCHC RDW Plt Count MPV Neut # (Auto) Lymph # (Auto) [place] # (Auto) Eos # (Auto) Baso # (Auto) Absolute Nucleated RBC Nucleated RBC % PT INR Sodium Potassium Chloride Carbon Dioxide Anion Gap BUN Creatinine Estimated GFR (MDRD) Glucose Lactic Acid 1.9 Calcium Total Bilirubin AST ALT Alkaline Phosphatase Total Protein Albumin Globulin Albumin/Globulin Ratio Lipase Urine Color YELLOW Urine Clarity CLEAR Urine pH 7.5 Ur Specific [place] 1.015 Urine Protein 30 H Urine Glucose (UA) NEGATIVE Urine Ketones NEGATIVE Urine Occult Blood TRACE-INTA Urine Nitrite NEGATIVE Urine Bilirubin NEGATIVE Urine Urobilinogen 0.2 (NORMAL) Ur Leukocyte Esterase TRACE H Urine RBC 0-5 Urine WBC 4-5 Ur Squamous Epith Cells FEW Squamous Urine Bacteria Few Urine Culture Comments INDICATED - Rads (name of study) CXR Radiology: Prelim report reviewed (Stable appearing chest without acute cardiopulmonary abnormality) CT abd/pelvis with contrast Radiology: Prelim report reviewed (Diverticulosis without signs of diverticulitis, no acute abdominal process identified) PD MEDICAL DECISION MAKING - ED course Complexity details: considered differential (UTI, pyelonephritis, sepsis, pneumonia, diverticulitis, abdominal abscess, appendicitis, viral syndrome) ED course: On initial exam patient is nontoxic-appearing, vital signs notable for fever of 38.1 C. Blood cultures were drawn and patient was started on ceftriaxone for potential urinary source for infection. Her heart rate and blood pressure are unremarkable. She has a benign abdominal exam with no appreciable tenderness. She was placed in the monitor, IV was inserted she is given a 500 cc normal saline bolus. Labs show no leukocytosis, she does have a hyponatremia which is stable from previous values. Lactate normal. Creatinine is unremarkable. Chest x-ray shows no acute cardiopulmonary process. Urinalysis is equivocal for infection with several white blood cells and few bacteria. Given her stomach upset CT of abdomen pelvis was obtained which showed no acute abdominal process. Patient iha no chest pain, no shortness of breath to suggest cardiopulomary cause of her symptoms. No skin lesions or rash as a possible infectious source. On repeat examination patient is afebrile, she is feeling better, her vital signs are unremarkable she has no tachycardia, and her abdomen remains benign. She has no neck pain or confusion to suggest meningeal infection. She is feeling improved. Given her reassuring labs, vital signs, and clinical picture, I feel she is safe for discharge with close follow-up at this time. I discussed with her that we will treat her for a possible UTI with a course of Cefdinir, but that she should return to the emergency department if she has any vomiting, recurrent fever, or new symptoms. The staff at [facility] will continue to monitor her and check her temperature. I also recommended close follow-up with her primary care provider. She will be called if her blood cultures results positive. Patient agrees with this plan, and was discharged home Departure - Departure Disposition: 01 Home, Self Care Clinical Impression: Hyponatremia Fever Qualifiers: Fever type: unspecified Qualified Code(s): R50.9 - Fever, unspecified UTI (urinary tract infection) Qualifiers: Urinary tract infection type: acute cystitis Hematuria presence: without hematuria Qualified Code(s): N30.00 - Acute cystitis without hematuria Condition: Stable Instructions: ED Fever Unconf Cause Follow-Up: MARY CARABALLO [Primary Care Provider] - Tomorrow (For follow up on symptoms) Prescriptions: Cefdinir 300 mg PO BID 7 Days #14 capsule Comments: You were seen today for fever, as well as some abdominal pain. Your CAT scan of your abdomen does not show any obvious cause of your nausea or abdominal pain. Your labs show a low sodium level, but this is similar to past levels you have had at 128. You may have a urinary tract infection, please take the antibiotic as prescribed for the entire course. We will call you if your blood tests come back with any new concerning results. Return to the emergency department if you develop more fever, abdominal pain, vomiting, or any other concerning symptoms. Follow up with your PCP as soon as possible.
--- NOTE | 2019-07-11 04:26 | XRAY Report ---
Reason: Fever, sepsis Procedure Date: 07/11/2019 Accession Number: [id number] / [id number] Procedure: XR - Chest 1 View X-Ray CPT Code: 63256 FULL RESULT: EXAM: CHEST RADIOGRAPHY EXAM DATE: 07/11/2019 04:10 AM. CLINICAL HISTORY: Fever, sepsis. COMPARISON: CHEST 2 VIEW PA/LAT 11/25/2017 4:08 PM. TECHNIQUE: 1 view. FINDINGS: Lungs/Pleura: No focal opacities evident. No pleural effusion. No pneumothorax. Mediastinum: Within exam limitations, the cardiomediastinal contour is normal. Other: Moderate to severe degenerative change about the right shoulder. Moderate left shoulder degenerative change. IMPRESSION: Stable appearance of the chest without acute cardiopulmonary abnormality. RADIA
[2019-07-11 04:27] LABS: BASOPHILS # (AUTO) 0.1 10^3/uL (0.0-0.1); BASOPHILS % (AUTO) 0.8 %; EOSINOPHILS # (AUTO) 0.2 10^3/uL (0.0-0.7); HGB - HEMOGLOBIN 10.4 g/dL (12.0-16.0); LYMPHOCYTES # (AUTO) 1.6 10^3/uL (1.5-3.5); LYMPHOCYTES % (AUTO) 20.3 %; MEAN CORPUSCULAR HEMOGLOBIN 30.6 pg (27.0-31.0); MEAN CORPUSCULAR HGB CONC 33.3 g/dL (32.0-36.0); MEAN CORPUSCULAR VOLUME 91.8 fL (81.0-99.0); MEAN PLATELET VOLUME 8.9 fL (7.9-10.8); MONOCYTES # (AUTO) 0.4 10^3/uL (0.0-1.0); MONOCYTES % (AUTO) 4.8 %; NEUTROPHILS # (AUTO) 5.7 10^3/uL (1.5-6.6); NEUTROPHILS % (AUTO) 71.6 %; PLT - PLATELET COUNT 264 10^3/uL (130-450); RED CELL DISTRIBUTION WIDTH 13.7 % (12.0-15.0)
[2019-07-11 04:41] LABS: ALBUMIN 3.9 g/dL (3.2-5.5); ALBUMIN/GLOBULIN RATIO 1.3 (1.0-2.2); BILIRUBIN,TOTAL 0.7 mg/dL (0.2-1.0); CALCIUM 10.1 mg/dL (8.5-10.3); CREATININE 1.2 mg/dL (0.4-1.0)
[2019-07-11 05:34] LABS: INR 1.1 (0.8-1.2); PT - PROTHROMBIN TIME 12.7 secs (9.9-12.6)
[2019-07-11 05:40] LABS: BILIRUBIN,URINE NEGATIVE (NEGATIVE); GLUCOSE, URINE (UA) NEGATIVE (NEGATIVE); KETONES,URINE (UA) NEGATIVE (NEGATIVE); LEUKOCYTE ESTERASE, URINE TRACE (NEGATIVE); NITRITE,URINE NEGATIVE (NEGATIVE); OCCULT BLOOD,URINE TRACE-INTA (NEGATIVE); PH,URINE 7.5 PH (5.0-7.5); PROTEIN,URINE 30 mg/dL (NEGATIVE); UROBILINOGEN,URINE 0.2 (NORMAL) E.U./dL (NORMAL)
[2019-07-11 05:42] LABS: CLARITY,URINE CLEAR (CLEAR)
[2019-07-11 05:46] LABS: BACTERIA,URINE Few /HPF (None Seen); RBC,URINE 0-5 /HPF (0-5); SQUAMOUS EPITHELIAL CELL,UR FEW Squamous (<= Few)
[2019-07-11] MEDS ORDERED: IOVERSOL 320 100 ML VIAL IVP ONE ×2 (06:38→07:00)
--- NOTE | 2019-07-11 07:14 | CT Report ---
Reason: Abdominal discomfort, sepsis Procedure Date: 07/11/2019 Accession Number: [id number] / [id number] Procedure: CT - Abdomen/Pelvis W CPT Code: FULL RESULT: EXAM: CT ABDOMEN AND PELVIS EXAM DATE: 07/11/2019 06:57 AM CLINICAL HISTORY: Abdominal discomfort, sepsis. COMPARISONS: ABDOMEN COMPLETE 09/11/2018 2:27 AM. TECHNIQUE: Routine helical CT imaging was performed through the abdomen and pelvis. IV contrast: 100 mL Optiray 320. Enteric contrast: No. Reconstructions: Coronal and sagittal. In accordance with CT protocol optimization, one or more of the following dose reduction techniques were utilized for this exam: automated exposure control, adjustment of mA and/or KV based on patient size, or use of iterative reconstructive technique. FINDINGS: Lung Bases: Bibasilar scar/atelectasis. Heart size upper normal. Coronary artery calcified plaque. Small hiatal hernia. Liver: Approximately 3 low-attenuation lesions are seen in the right lobe of the liver with the largest measuring 9 mm, too small to characterize although possibly cysts. Patent portal vein. Gallbladder/Bile Ducts: Status post cholecystectomy. No biliary ductal dilatation. Spleen: Normal. Pancreas: Normal. Adrenal Glands: Adrenal gland thickening. Kidneys: Bilateral renal low-attenuation lesions too small to characterize. No CT evidence of pyelonephritis. No hydronephrosis. Distal ureters obscured by artifact created by the left hip arthroplasty. Peritoneal Cavity/Bowel: Stomach nondistended. No small bowel obstruction or small bowel wall thickening. Small fatty umbilical hernia. No free air. Small to moderate volume of stool in the colon. Diverticuli are present in the colon, largely the distal colon. No diverticulitis. No intraabdominal fluid collections. No enlarged retroperitoneal or mesenteric lymph nodes. Appendix not visualized. No right lower quadrant or pericecal inflammatory changes. Pelvic Organs: Urinary bladder mildly distended although partly obscured. No adnexal masses although the pelvis is partly obscured. Vasculature: Vascular calcifications. No aneurysm. Tortuous abdominal aorta. Mesenteric vasculature is patent. Bones: Degenerative changes of the lower thoracic and lumbar spine. Bilateral L5 pars interarticularis defects with grade 2 anterolisthesis of L5 on S1. Levoscoliosis of the lumbar spine. Left hip arthroplasty. Degenerative changes of the right hip joint. Other: None. IMPRESSION: 1. Colonic diverticulosis. No diverticulitis. No bowel obstruction. No bowel wall thickening. Appendix not visualized. 2. Status post cholecystectomy. No biliary ductal dilatation. 3. Hepatic and renal low-attenuation lesions, possibly cysts. 4. No CT evidence of pyelonephritis. RADIA
[2019-07-11 07:41] VITALS: BP 145/46
== END 2019-07-11 08:05 | disposition home or self-care (01) ==
LOC: EDUNIT# → ED 03:51
DX: E87.1 Hypo-osmolality and hyponatremia (principal); R50.9 Fever, unspecified; N30.00 Acute cystitis without hematuria; I10 Essential (primary) hypertension; Z86.79 Personal history of other diseases of the circulatory system
CPT/HCPCS: 36415; 71045; 74177; 80053; 81001; 83605; 83690; 85025; 85610; 87040; 87086; 96361; 96365; 96375; 99284; Q9967

== ENCOUNTER 2019-07-15 14:52 | Outpatient (CLI) | payer MEDICARE, OTHER ==
--- NOTE | 2019-07-16 09:34 | Ultrasound Report ---
Reason: STAGE G3B KIDNEY DISEASE Procedure Date: 07/15/2019 Accession Number: [id number] / [id number] Procedure: US - Retroperitoneal CPT Code: FULL RESULT: EXAM: RENAL ULTRASOUND EXAM DATE: 07/15/2019 03:45 PM. CLINICAL HISTORY: STAGE G3B KIDNEY DISEASE. COMPARISON: Abdominal pelvic CT 07/11/2019. TECHNIQUE: Real-time scanning was performed with static images obtained. FINDINGS: Right Kidney: 8.2 x 4.1 x 4.3 cm. Normal echotexture with no stones, contour-deforming masses, or hydronephrosis. An incidental lower pole simple cyst measures 1.57 m. Left Kidney: 9.6 x 4.6 x 4.5 cm. Normal echotexture with no stones, contour-deforming masses, or hydronephrosis. An incidental upper pole simple cyst measures 0.9 cm. Bladder: Bilateral jets seen. The prevoid bladder volume was 201 cc. The postvoid bladder volume was 25 cc. No bladder wall mass, thickening or debris evident. Other: None. IMPRESSION: 1. No hydronephrosis. 2. Small postvoid bladder residual of 25 cc. RADIA
== END 2019-07-15 14:53 | disposition home or self-care (01) ==
LOC: DI 14:52
PROVIDERS: ATTEND Internal Medicine Nephrology
DX: N18.3 Chronic kidney disease, stage 3 (moderate) (principal)
CPT/HCPCS: 76770

== ENCOUNTER 2019-09-17 14:17 | Outpatient (CLI) | payer MEDICARE, OTHER | END 2019-09-17 14:18 | disposition critical access hospital (66) | LOC: EMS 14:17 | PROVIDERS: ATTEND Surgery | DX: S01.81XA Laceration without foreign body of other part of head, initial encounter (principal); W01.0XXA Fall on same level from slipping, tripping and stumbling without subsequent striking against object, initial encounter; Y93.01 Activity, walking, marching and hiking; Y92.099 Unspecified place in other non-institutional residence as the place of occurrence of the external cause | CPT/HCPCS: A0425; A0429 ==

== ENCOUNTER 2019-09-17 14:33 | Emergency (ER) | payer MEDICARE, OTHER ==
--- NOTE | 2019-09-17 15:00 | ED Physician Documentation ---
History of Present Illness - Stated complaint Stated Complaint: FALL - Chief complaint Chief Complaint: Trauma Hd/Nk - History obtained from History obtained from: Patient, EMS - History of Present Illness Timing: Today Pain level max: 4 Pain level now: 3 - Additonal information Additional information: 88-year-old female tripped over her bed spread today, fell face first on the carpet injuring her nose and causing a nosebleed. No loss of consciousness. No vomiting. No numbness or tingling. No focal neurological deficits. Nothing makes it better or worse. Bleeding now resolved. Tetanus is up-to-date Review of Systems Constitutional: denies: Fever, Chills GI: denies: Vomiting, Diarrhea Skin: denies: Rash Musculoskeletal: denies: Back pain Neurologic: denies: Focal weakness, Numbness, Confused, Altered mental status, LOC PD PAST MEDICAL HISTORY - Past Medical History Past Medical History: Yes Cardiovascular: Hypertension Respiratory: Sleep apnea, CPAP use Neuro: Tremors Endocrine/Autoimmune: None GI: None TECHNICAL SERVICES ANALYST: None : None HEENT: Chronic hearing loss Psych: Depression, Anxiety Musculoskeletal: None Derm: None - Past Surgical History Past Surgical History: Yes General: Cholecystectomy, Appendectomy Ortho: Knee replacement HEENT: Tonsil/Adenoidectomy - Present Medications Home Medications: Ambulatory Orders Medication Instructions Recorded Confirmed Aspirin [Aspirin EC] 81 mg PO QPM 09/11/18 09/11/18 Citalopram Hydrobromide 20 mg PO DAILY 09/11/18 09/11/18 [Citalopram HBr] Loratadine [Claritin] 10 mg PO DAILY 09/11/18 09/11/18 Propranolol ER [Inderal LA] 80 mg PO DAILY 09/11/18 09/11/18 Ropinirole HCl [Requip] 0.5 mg PO QPM 09/11/18 09/11/18 Valsartan [Diovan] 320 mg PO DAILY 09/11/18 09/11/18 Cyclobenzaprine [Flexeril] 10 mg PO TID PRN #20 tablet 12/19/18 ALPRAZolam [Alprazolam] 0.25 mg PO BID 07/11/19 07/11/19 Calcium Carbonate [Tums (Calcium 1,000 mg PO TID 07/11/19 07/11/19 Carbonate 500mg)] Cefdinir 300 mg PO BID 7 Days #14 capsule 07/11/19 Chlorthalidone 37.5 mg PO DAILY 07/11/19 07/11/19 raNITIdine [Zantac] 150 mg PO BID 07/11/19 07/11/19 - Allergies Allergies/Adverse Reactions: Allergies Allergy/AdvReac Type Severity Reaction Status Date / Time codeine Allergy Nausea Verified 09/17/19 14:47 lidocaine Allergy Unknown Verified 09/17/19 14:47 lisinopril Allergy Respiratory Verified 09/17/19 14:47 procaine [From Novocain] Allergy Anaphylaxis Verified 09/17/19 14:47 Sulfa (Sulfonamide Allergy Nausea Verified 09/17/19 14:47 Antibiotics) - Social History Does the pt smoke?: No Smoking Status: Never smoker Does the pt drink ETOH?: No Does the pt have substance abuse?: No - Immunizations Immunizations are current?: Yes - POLST Patient has POLST: No POLST Status: DNR PD ED PE NORMAL - Vitals Vital signs reviewed: Yes - General General: Alert and oriented X 3, No acute distress, Well developed/nourished - HEENT HEENT: PERRL, Ears normal, Moist mucous membranes, Other (Abrasion to the tip of the nose. Dried blood in the bilateral nare. No septal hematoma. There is swelling to the bridge of the nose. Extraocular movements are intact. No gross deformities. Normal intraoral exam. No scalp hematomas or palpable skull fractures) - Neck Neck: Supple, no meningeal sign, No bony TTP, Other (C-collar in place) - Cardiac Cardiac: RRR, Strong equal pulses - Respiratory Respiratory: No respiratory distress, Clear bilaterally - Abdomen Abdomen: Soft, Non tender, Non distended - Back Back: No spinal TTP - Derm Derm: Warm and dry - Extremities Extremities: No deformity, No tenderness to palpate, Normal ROM s pain - Neuro Neuro: Alert and oriented X 3, quality assurance intern 2-12 intact, No motor deficit, No sensory deficit, Normal speech Eye Opening: Spontaneous Motor: Obeys Commands Verbal: Oriented GCS Score: 15 - Psych Psych: Normal mood, Normal affect Results - Vitals Vitals: Vital Signs - 24 hr 09/17/19 14:41 Temperature 36.5 C Heart Rate 68 Respiratory 16 Rate Blood Pressure 175/48 H O2 Saturation 100 Oxygen O2 Source Room air - Rads (name of study) head CT Radiology: Prelim report reviewed, EMP read contemporaneously, See rad report (No acute abnormality) maxillofacial CT Radiology: Prelim report reviewed, EMP read contemporaneously, See rad report (No acute abnormality) cervical spine CT Radiology: Prelim report reviewed, EMP read contemporaneously, See rad report (No acute abnormality) PD MEDICAL DECISION MAKING - ED course Complexity details: reviewed results, re-evaluated patient, considered differential, d/w patient ED course: No acute findings on CT scans. Abrasion on the nose was repaired with Dermabond. She does have bruising to the face. This will likely continue. No other acute injuries. No evidence of syncope or cardiac event. Patient counseled regarding signs and symptoms for which I believe and urgent re- evaluation would be necessary. Patient with good understanding of and agreement to plan and is comfortable going home at this time This document was made in part using voice recognition software. While efforts are made to proofread this document, sound alike and grammatical errors may occur. Departure - Departure Disposition: 01 Home, Self Care Clinical Impression: Epistaxis Head injury Qualifiers: Encounter type: initial encounter Qualified Code(s): S09.90XA - Unspecified injury of head, initial encounter Sinusitis Qualifiers: Sinusitis location: unspecified location Chronicity: unspecified Qualified Code(s): J32.9 - Chronic sinusitis, unspecified Condition: Good Instructions: ED Head Injury Closed, ED Sinusitis No Abx Follow-Up: Your,doctor in 1 week [Other] Comments: Your CT scan does not show any acute abnormalities tonight. You do appear to have sinusitis, loss is likely chronic. Follow-up with your doctor for further care. Discharge Date/Time: 09/17/19 18:19
[2019-09-17 15:15] VITALS: BP 175/48
--- NOTE | 2019-09-17 17:32 | CT Report ---
Reason: facial bone/nasal tenderness s/p fall Procedure Date: 09/17/2019 Accession Number: [id number] / [id number] Procedure: CT - MAXILLOFACIAL WO CPT Code: FULL RESULT: EXAM: CT MAXILLOFACIAL WITHOUT CONTRAST EXAM DATE: 09/17/2019 04:19 PM. CLINICAL HISTORY: Facial bone/nasal tenderness s/p fall. COMPARISONS: None. TECHNIQUE: Thin-section axial images were acquired of the face without contrast. Post-processing: Coronal and sagittal reformats. Other: None. In accordance with CT protocol optimization, one or more of the following dose reduction techniques were utilized for this exam: automated exposure control, adjustment of mA and/or KV based on patient size, or use of iterative reconstructive technique. FINDINGS: Soft Tissue: The infratemporal fossa and parapharyngeal spaces are unremarkable. Orbits: No significant abnormalities. Status post bilateral lens extractions. Bones: No acute fractures. Temporomandibular Joints: The temporomandibular joints are symmetric and normally located. Sinuses: Right maxillary sinus diffusely filled with hyperattenuating material. Small air-fluid level in left maxillary sinus. Mild thickening and sclerosis of the right maxillary sinus alcocer. Other: None. IMPRESSION: No acute maxillofacial fractures. Sequela of likely chronic sinus infection of the right maxillary sinus. Fungal infections in the differential. RADIA
--- NOTE | 2019-09-17 17:33 | CT Report ---
Reason: head injury s/p fall Procedure Date: 09/17/2019 Accession Number: [id number] / [id number] Procedure: CT - HEAD WO CPT Code: FULL RESULT: EXAM: CT HEAD EXAM DATE: 09/17/2019 04:19 PM. CLINICAL HISTORY: Head injury s/p fall. COMPARISON: None. TECHNIQUE: Multiaxial CT images were obtained from the foramen magnum to the vertex. Reformats: Sagittal and coronal. IV contrast: None. In accordance with CT protocol optimization, one or more of the following dose reduction techniques were utilized for this exam: automated exposure control, adjustment of mA and/or KV based on patient size, or use of iterative reconstructive technique. FINDINGS: Parenchyma: Negative for acute intracranial hemorrhage. There is no midline shift or mass-effect. Luna-white matter differentiation is preserved. Extraaxial Spaces: No subdural or epidural collections identified. Ventricles: Normal in size and position. Sinuses and Orbits: There is complete opacification of the right maxillary sinus. There is ethmoid sinus opacification and left maxillary and frontal sinus mucosal thickening. Bones: No fracture of the calvarium. Other: None. IMPRESSION: 1. Negative for intracranial acute hemorrhage or mass-effect. No focal acute intracranial process. 2. Right maxillary sinus opacification. Paranasal sinus mucosal thickening. RADIA
--- NOTE | 2019-09-17 17:34 | CT Report ---
Reason: neck pain s/p fall Procedure Date: 09/17/2019 Accession Number: [id number] / [id number] Procedure: CT - CERVICAL SPINE WO CPT Code: FULL RESULT: EXAM: CT CERVICAL SPINE WITHOUT CONTRAST DATE: 09/17/2019 04:19 PM. HISTORY: Neck pain s/p fall. COMPARISONS: None. TECHNIQUE: Thin-section axial images were acquired of the cervical spine without contrast. Post-processing: Coronal and sagittal reformats. Other: None. In accordance with CT protocol optimization, one or more of the following dose reduction techniques were utilized for this exam: automated exposure control, adjustment of mA and/or KV based on patient size, or use of iterative reconstructive technique. FINDINGS: Alignment: Mild levoconvex curvature of the cervical spine may be related to positioning or muscle strain. There is grade 1 anterolisthesis of C7 on T1 measuring approximately 3 mm. Bones/discs: The bones are osteopenic. No acute fracture, subluxation, or compression deformity. Facet joint alignment is normal. Multilevel degenerative disc disease most significant at C4-C5 and C6-C7. Moderate multilevel degenerative facet arthropathy. Musculature: Unremarkable. Other: The paravertebral and prevertebral soft tissues are unremarkable. The lung apices are clear. Complete opacification of the visualized right maxillary sinus. Mucosal thickening in the left maxillary sinus and ethmoid air cells. Calcified plaque at the left carotid bulb. IMPRESSION: Osteopenia. No acute fracture or malalignment of the cervical spine visualized. Grade 1 anterolisthesis of C7 on T1 likely related to chronic degenerative change. Multilevel degenerative joint and disk disease, as described above. [facility]
== END 2019-09-17 18:19 | disposition home or self-care (01) ==
LOC: EDUNIT# → ED 14:33
DX: S09.90XA Unspecified injury of head, initial encounter (principal); S00.31XA Abrasion of nose, initial encounter; R04.0 Epistaxis; S00.83XA Contusion of other part of head, initial encounter; W01.0XXA Fall on same level from slipping, tripping and stumbling without subsequent striking against object, initial encounter; Y92.009 Unspecified place in unspecified non-institutional (private) residence as the place of occurrence of the external cause; J32.0 Chronic maxillary sinusitis; M50.321 Other cervical disc degeneration at C4-C5 level; M85.88 Other specified disorders of bone density and structure, other site; I10 Essential (primary) hypertension; Z79.82 Long term (current) use of aspirin
CPT/HCPCS: 70450; 70486; 72125; 99282; 99284